=== PATIENT | male | born 1995 | race Caucasian/White ===

== ENCOUNTER 2016-06-14 09:42 | Emergency (ER) | payer MEDICAID ==
[2016-06-14 09:58] VITALS: BP 140/99
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
== END 2016-06-14 13:23 ==
LOC: JD.ED 09:42
DX: F20.9 Schizophrenia, unspecified (principal); F41.9 Anxiety disorder, unspecified; F32.9 Major depressive disorder, single episode, unspecified; F17.210 Nicotine dependence, cigarettes, uncomplicated; Z88.2 Allergy status to sulfonamides
CPT/HCPCS: 36415; 80053; 80306; 85025; 93005; 99284; G0480; 99285

== ENCOUNTER 2017-01-02 17:28 | Emergency (ER) | payer MEDICAID ==
[2017-01-02 17:40] VITALS: BP 179/103
[2017-01-02] MEDS ORDERED: Ondansetron 4 MG Tab.DIS PO ONE (19:24)
[2017-01-02] MEDS ORDERED: LORazepam 1 MG Tab PO ONE (19:24)
[2017-01-02] MEDS ORDERED: Dicyclomine 10 MG Cap PO ONE (19:24)
--- NOTE | 2017-01-02 19:26 | EDM.PDOCBH ---
ED HPI GENERAL MEDICAL PROBLEM - General Chief Complaint: Behavioral/Psych Stated Complaint: PSYCH/BEHAVIOR EVAL Time Seen by Provider: 01/02/17 19:05 Source of Information: Reports: Patient History Limitations: Reports: No Limitations - History of Present Illness INITIAL COMMENTS - FREE TEXT/NARRATIVE: 21-year-old male presents with his parents for evaluation treatment of suicidal thoughts and worsening hallucinations. Patient has a diagnosis of ADHD, schizophrenia, OCD and Tourette's. Does not recall what medications he was on previously. Possibly Abilify. He states he is currently only taking trazodone as needed for sleep. He said reports that he quit taking all his medications about 3 or 4 weeks ago. He states over the last few days he has noticed increasing auditory and visual hallucinations in the form of hearing his friends. He is also having suicidal thoughts. No current suicidal plan. No homicidal thoughts or any homicidal plan. Patient admits using marijuana and Xanax recreationally. He also states that he is using Coricidin the other day and attempt to get high and also possibly to end his life. He has previously had suicidal attempts. He has previously been inpatient psych in [facility] and at the [facility]. Patient was previously seen Dr. Goyal of [facility]. He has now been seeing Dr. Harris through telepsych out of [place]. Patient came to the ER as he states that he is feeling more depressed and suicidal. He states that he no longer feels safe at home in his apartment. He attributes this both to paranoid thoughts as well as not feeling safe due to his suicidal thoughts. He also reports he has not been sleeping well. Patient reports some medical concerns in the form of abdominal discomfort. Reports over the last 4-5 days it has minimal abdominal discomfort. Reports associated nausea and diarrhea. States she's had about 3 or 4 episodes of diarrhea per day. He states that anything he eats goes right through him. He has not had any fevers or vomiting. - Related Data Allergies Allergy/AdvReac Type Severity Reaction Status Date / Time Sulfa (Sulfonamide Allergy Respiratory Verified 01/02/17 17:33 Antibiotics) Distress Home Meds: Home Meds . [Unable to Verify Home Med List] 01/02/17 [History] Past Medical History Cardiovascular History: Reports: Hypertension Psychiatric History: Reports: ADD, ADHD, Anxiety, Depression, OCD, Panic Attack , Schizophrenia Other Psychiatric History: paranoia Social & Family History - Tobacco Use Smoking Status *Q: Current Every Day Smoker Years of Tobacco use: 1 Packs/Tins Daily: 0.2 - Caffeine Use Caffeine Use: Reports: Coffee, Energy Drinks, Soda - Recreational Drug Use Recreational Drug Use: Yes Drug Use in Last 12 Months: Yes Recreational Drug Type: Reports: Marijuana/Hashish, Xanax Recreational Drug Use Frequency: Daily Recreational Drug Last Use: today ED ROS GENERAL - Review of Systems Review Of Systems: See Below Constitutional: Reports: Decreased Appetite. Denies: Fever Respiratory: Denies: Cough GI/Abdominal: Reports: Abdominal Pain (cramping), Diarrhea (3-4 times per day), Nausea. Denies: Vomiting Neurological: Reports: Headache Psychiatric: Reports: Anxiety, Hallucinations, Suicidal Ideation. Denies: Homicidal Ideation ED EXAM, BEHAVIORAL HEALTH - Physical Exam Exam: See Below Exam Limited By: No Limitations General Appearance: Alert, WD/WN, No Apparent Distress, Obese Eye Exam: Bilateral Eye: Normal Inspection Ears: Normal External Exam Nose: Normal Inspection Throat/Mouth: Normal Inspection, Normal Lips, Normal Voice, No Airway Compromise Respiratory/Chest: No Respiratory Distress, Lungs Clear, Normal Breath Sounds Cardiovascular: Normal Peripheral Pulses, Regular Rate, Rhythm, No Murmur GI/Abdominal: Normal Bowel Sounds, Soft, Non-Tender Neurological: Alert, Normal Mood/Affect, Normal Cognition Psychiatric: Alert, Depressed Mood, Flat Affect, Suicidal Thoughts, Auditory Hallucinations, Visual Hallucinations, Paranoid Thoughts. No: Non-Communicative , Homicidal Thoughts, Suicidal Plan Skin Exam: Warm, Dry, Normal color COURSE, BEHAVIORAL HEALTH COMP - Course Vital Signs: Last Vital Signs Temp 36.5 C 01/02/17 17:34 Pulse 88 01/02/17 17:34 Resp 18 01/02/17 17:34 BP 179/103 H 01/02/17 17:34 Pulse Ox 97 01/02/17 17:34 Orders, Labs, Meds: Active Orders 24 hr Category Date Time Status Consult to [employer] Attendant [CONS] Routine Cons 01/03/17 00:16 Active Abdomen 1V Flat [CR] Stat Exams 01/02/17 19:23 Taken Laboratory Tests 01/02/17 01/02/17 01/02/17 Range/Units 19:45 19:45 19:45 WBC 15.14 H (4.23-9.07) K/mm3 RBC 5.43 (4.63-6.08) M/mm3 Hgb 16.5 (13.7-17.5) gm/L Hct 47.5 (40.1-51.0) % MCV 87.5 (79.0-92.2) fl MCH 30.4 (25.7-32.2) pg MCHC 34.7 (32.2-35.5) g/dl RDW Std Deviation 41.6 (35.1-43.9) fL Plt Count 267 (163-337) K/mm3 MPV 9.9 (9.4-12.3) fl Neutrophils % (Manual) 73 H (40-60) % Band Neutrophils % 0 (0-10) % Lymphocytes % (Manual) 19 L (20-40) % Atypical Lymphs % 0 % Monocytes % (Manual) 8 (2-10) % Eosinophils % (Manual) 0 L (0.8-7.0) % Basophils % (Manual) 0 L (0.2-1.2) Platelet Estimate Adequate RBC Morph Comment Normal Sodium 143 (136-145) mEq/L Potassium 3.6 (3.5-5.1) mEq/L Chloride 106 (98-107) mEq/L Carbon Dioxide 23 (21-32) mEq/L Anion Gap 17.6 H (5-15) BUN 12 (7-18) mg/dL Creatinine 1.0 (0.7-1.3) mg/dL Est Cr Clr Drug Dosing 124.45 mL/min Estimated GFR (MDRD) > 60 (>60) mL/min BUN/Creatinine Ratio 12.0 L (14-18) Glucose 105 (74-106) mg/dL Calcium 9.4 (8.5-10.1) mg/dL Total Bilirubin 0.7 (0.2-1.0) mg/dL AST 24 (15-37) U/L ALT 46 (16-63) U/L Alkaline Phosphatase 99 (46-116) U/L C-Reactive Protein 1.0 (<1.0) mg/dL Total Protein 8.2 (6.4-8.2) g/dl Albumin 4.2 (3.4-5.0) g/dl Globulin 4.0 gm/dL Albumin/Globulin Ratio 1.1 (1-2) TSH 3rd Generation 2.329 (0.358-3.74) uIU/mL Urine Color (Yellow) Urine Appearance (Clear) Urine pH (5.0-8.0) Ur Specific [place] (1.005-1.030) Urine Protein (Negative) Urine Glucose (UA) (Negative) Urine Ketones (Negative) Urine Occult Blood (Negative) Urine Nitrite (Negative) Urine Bilirubin (Negative) Urine Urobilinogen (0.2-1.0) Ur Leukocyte Esterase (Negative) Urine RBC (0-5) /hpf Urine WBC (0-5) /hpf Ur Epithelial Cells (0-5) /hpf Urine Bacteria (FEW) /hpf Urine Mucus (FEW) /hpf Salicylates 4.6 (2.8-20) mg/dL Urine Opiates Screen (NEGATIVE) Ur Buprenorphine Scrn (NEGATIVE) Ur Oxycodone Screen (NEGATIVE) Urine Methadone Screen (NEGATIVE) Ur Propoxyphene Screen (NEGATIVE) Acetaminophen 0 L (10-30) ug/mL Ur Barbiturates Screen (NEGATIVE) Ur Tricyclics Screen (NEGATIVE) Ur Phencyclidine Scrn (NEGATIVE) Ur Amphetamine Screen (NEGATIVE) U Methamphetamines Scrn (NEGATIVE) U Benzodiazepines Scrn (NEGATIVE) U Cocaine Metab Screen (NEGATIVE) U Marijuana (THC) Screen (NEGATIVE) Ethyl Alcohol 0.00 (0.00) gm% 01/02/17 01/02/17 Range/Units 20:44 20:44 WBC (4.23-9.07) K/mm3 RBC (4.63-6.08) M/mm3 Hgb (13.7-17.5) gm/L Hct (40.1-51.0) % MCV (79.0-92.2) fl MCH (25.7-32.2) pg MCHC (32.2-35.5) g/dl RDW Std Deviation (35.1-43.9) fL Plt Count (163-337) K/mm3 MPV (9.4-12.3) fl Neutrophils % (Manual) (40-60) % Band Neutrophils % (0-10) % Lymphocytes % (Manual) (20-40) % Atypical Lymphs % % Monocytes % (Manual) (2-10) % Eosinophils % (Manual) (0.8-7.0) % Basophils % (Manual) (0.2-1.2) Platelet Estimate RBC Morph Comment Sodium (136-145) mEq/L Potassium (3.5-5.1) mEq/L Chloride (98-107) mEq/L Carbon Dioxide (21-32) mEq/L Anion Gap (5-15) BUN (7-18) mg/dL Creatinine (0.7-1.3) mg/dL Est Cr Clr Drug Dosing mL/min Estimated GFR (MDRD) (>60) mL/min BUN/Creatinine Ratio (14-18) Glucose (74-106) mg/dL Calcium (8.5-10.1) mg/dL Total Bilirubin (0.2-1.0) mg/dL AST (15-37) U/L ALT (16-63) U/L Alkaline Phosphatase (46-116) U/L C-Reactive Protein (<1.0) mg/dL Total Protein (6.4-8.2) g/dl Albumin (3.4-5.0) g/dl Globulin gm/dL Albumin/Globulin Ratio (1-2) TSH 3rd Generation (0.358-3.74) uIU/mL Urine Color Yellow (Yellow) Urine Appearance Clear (Clear) Urine pH 5.5 (5.0-8.0) Ur Specific [place] > or = 1.030 (1.005-1.030) Urine Protein 1+ H (Negative) Urine Glucose (UA) Negative (Negative) Urine Ketones 3+ H (Negative) Urine Occult Blood Negative (Negative) Urine Nitrite Negative (Negative) Urine Bilirubin 2+ H (Negative) Urine Urobilinogen 1.0 (0.2-1.0) Ur Leukocyte Esterase Negative (Negative) Urine RBC 0-5 (0-5) /hpf Urine WBC 0-5 (0-5) /hpf Ur Epithelial Cells 0-5 (0-5) /hpf Urine Bacteria Few (FEW) /hpf Urine Mucus Moderate H (FEW) /hpf Salicylates (2.8-20) mg/dL Urine Opiates Screen Negative (NEGATIVE) Ur Buprenorphine Scrn Negative (NEGATIVE) Ur Oxycodone Screen Negative (NEGATIVE) Urine Methadone Screen Negative (NEGATIVE) Ur Propoxyphene Screen Negative (NEGATIVE) Acetaminophen (10-30) ug/mL Ur Barbiturates Screen Negative (NEGATIVE) Ur Tricyclics Screen Negative (NEGATIVE) Ur Phencyclidine Scrn Negative (NEGATIVE) Ur Amphetamine Screen Negative (NEGATIVE) U Methamphetamines Scrn Negative (NEGATIVE) U Benzodiazepines Scrn Presumptive positive H (NEGATIVE) U Cocaine Metab Screen Negative (NEGATIVE) U Marijuana (THC) Screen Presumptive positive H (NEGATIVE) Ethyl Alcohol (0.00) gm% Medications Discontinued Medications Generic Name Dose Route Start Last Admin Trade Name Lucille PRN Reason Stop Dose Admin Dicyclomine HCl 20 mg 01/02/17 19:24 01/02/17 19:37 Bentyl PO 01/02/17 19:25 20 mg ONETIME ONE Administration Lorazepam 1 mg 01/02/17 19:24 01/02/17 19:37 Ativan PO 01/02/17 19:25 1 mg ONETIME ONE Administration Lorazepam 1 mg 01/03/17 00:15 01/03/17 00:42 Ativan PO 01/03/17 00:16 1 mg ONETIME ONE Administration Ondansetron HCl 4 mg 01/02/17 19:24 01/02/17 19:37 Zofran Odt PO 01/02/17 19:25 4 mg ONETIME ONE Administration Re-Assessment/Re-Exam: 01-03-17 01:26 [facility] and [facility] in [place] are all full. Given that the patient has been to the [facility] in the past, I feel this is the most appropriate step. [facility] human services came to the ER and evaluated the patient. They contacted the [facility] and I discussed the case with Dr. Loo at the [facility]. The [facility] take him in the morning. Plan will be to have him either stay in the ER or go to the [facility] until he can be transported safely in the morning. committal paperwork has been filed. Medical Clearance: 01/03/17 01:24 Patient is medically cleared to go to the [facility] for further management and care KUB of the abdomen shows a normal bowel gas pattern. I feel his GI symptoms are likely from a viral gastritis enteritis. He is not pain diarrhea since entering the ER. He has been able to eat and has not had any vomiting with this. Discharge vs Psych Eval/Treatment:: 01/03/17 01:[address] Loo, psychiatrist contact center assistant at the [facility]. Agrees to the admission. Will take him in the morning. He may go to [facility] tonight or spend the night in the ER. Departure - Departure Time of Disposition: 09:00 Disposition: DC/Tfer to Psych Hosp/Unit 65 Condition: Fair Clinical Impression: Hallucinations, Suicidal ideation, Anxiety Schizophrenia Qualifiers: Schizophrenia type: unspecified Qualified Code(s): F20.9 - Schizophrenia, unspecified - Discharge Information Referrals: Pooja Joseph PA-C [Primary Care Provider] - Forms: ED Department Discharge Additional Instructions: Current plan is to transport the patient to the [facility] in the morning. He has been screened by [facility]. Committal paperwork is in place. I discussed the case Dr. Proctor, psychiatrist contact center assistant at the [facility] and he has accepted the patient. He may stay the night in the ER as long as he is calm and acts appropriately. He was informed that if he attempts to leave or causes any problems the police will be called and he will then spend the night in the [facility]. - My Orders Last 24 Hours: My Active Orders 01/02/17 19:23 Abdomen 1V Flat [CR] Stat 01/03/17 00:16 Consult to [employer] Attendant [CONS] Routine - Assessment/Plan Last 24 Hours: My Active Orders 01/02/17 19:23 Abdomen 1V Flat [CR] Stat 01/03/17 00:16 Consult to [employer] Attendant [CONS] Routine
[2017-01-02 20:29] LABS: ACETAMINOPHEN 0 ug/mL (10-30)
[2017-01-03] MEDS ORDERED: LORazepam 1 MG Tab PO ONE (00:15)
[2017-01-03] MEDS ORDERED: Acetaminophen 325 MG Tab PO ONE (01:21)
--- NOTE | 2017-01-04 11:01 | CR ---
Abdomen: Supine view of the abdomen was obtained. Comparison: No prior abdominal x-ray, prior abdominal and pelvic CT exam of 02/28/10 is available. Bowel gas pattern appears normal. No abnormal calcifications or discrete soft tissue abnormality is identified. Bony structures are grossly intact. Impression: 1. No abnormality is seen on supine abdominal x-ray. Diagnostic code #1
== END 2017-01-03 08:15 ==
LOC: JD.ED 17:28
DX: R45.851 Suicidal ideations (principal); F20.9 Schizophrenia, unspecified; F41.9 Anxiety disorder, unspecified; I10 Essential (primary) hypertension; F17.210 Nicotine dependence, cigarettes, uncomplicated; Z88.2 Allergy status to sulfonamides
CPT/HCPCS: 36415; 74000; 80053; 80306; 81001; 84443; 85025; 86140; 96372; 99285; A9270; G0480; 99284

== ENCOUNTER 2017-06-19 11:37 | Emergency (ER) | payer OTHER, MEDICAID ==
[2017-06-19 11:48] VITALS: BP 151/88
[2017-06-19] MEDS ORDERED: Lidocaine 1% 10 ML MDV INJECT ONE (11:56)
--- NOTE | 2017-06-19 11:56 | EDM.PDOC ---
ED HPI GENERAL MEDICAL PROBLEM - General Chief Complaint: Upper Extremity Injury/Pain Stated Complaint: RT RING FINGER LAC Time Seen by Provider: 06/19/17 11:55 Source of Information: Reports: Patient History Limitations: Reports: No Limitations - History of Present Illness INITIAL COMMENTS - FREE TEXT/NARRATIVE: Chinedu is a 22yo male presents ambulatory to ED this morning after knife slipped while opening a package at work lacerating his left ring finger dorsal surface. Bleeding is controlled now. He can move/bend the finger and has sensation to tip of finger. Last tetanus was 6 or 7 years ago. He declines tetanus immunization today. Onset: Today Duration: Hour(s): Location: Reports: Upper Extremity, Left (left ring finger over PIP joint surface) Improves with: Reports: None Worsens with: Reports: None Context: Reports: Other (work related, knife slipped while opening a package) Right Hand Pain Score (Numeric/FACES): 8 - Related Data Allergies Allergy/AdvReac Type Severity Reaction Status Date / Time Sulfa (Sulfonamide Allergy Respiratory Verified 06/19/17 11:45 Antibiotics) Distress Home Meds: Home Meds . [Unable to Verify Home Med List] 01/02/17 [History] Past Medical History Cardiovascular History: Reports: Hypertension Psychiatric History: Reports: ADD, ADHD, Anxiety, Depression, OCD, Panic Attack , Schizophrenia Other Psychiatric History: paranoia Social & Family History - Tobacco Use Smoking Status *Q: Never Smoker Years of Tobacco use: 1 Packs/Tins Daily: 0.2 - Caffeine Use Caffeine Use: Reports: Coffee, Energy Drinks, Soda - Recreational Drug Use Recreational Drug Use: No Drug Use in Last 12 Months: Yes Recreational Drug Type: Reports: Marijuana/Hashish, Xanax Recreational Drug Use Frequency: Daily Recreational Drug Last Use: today Review of Systems - Review of Systems Review Of Systems: See Below Constitutional: Reports: No Symptoms Eyes: Reports: No Symptoms Respiratory: Reports: No Symptoms Cardiovascular: Reports: No Symptoms Musculoskeletal: Reports: Other (see HPI) ED EXAM, GENERAL - Physical Exam Exam: See Below Exam Limited By: No Limitations General Appearance: Alert, WD/WN, No Apparent Distress Eye Exam: Bilateral Eye: EOMI, PERRL Nose: Normal Inspection Throat/Mouth: Normal Voice Head: Atraumatic, Normocephalic Neck: Normal Inspection Respiratory/Chest: No Respiratory Distress Cardiovascular: Normal Peripheral Pulses Peripheral Pulses: 2+: Radial (L), Radial (R) Extremities: Other (left hand is with linear laceration, approximately 1cm across ring finger, dorsal aspect over PIP surface. ROM to ringer/joint is WNL, CMS is + distal tip of finger) Neurological: Alert, Oriented, Normal Cognition Psychiatric: Normal Affect, Normal Mood Skin Exam: Warm ED TRAUMA EXTREMITY PROCEDURES - Laceration/Wound Repair Right Proximal Dorsal Finger Lac/Wound Length In cm: 1.5 Appearance: Superficial, Subcutaneous Distal NVT: Neuro & Vascular Intact Anesthetic Type: Digital Local Anesthesia - Lidocaine (Xylocaine): 1% Plain Local Anesthetic Volume: 5cc Skin Prep: Chlorhexidine (Hibiciens) Exploration/Debridement/Repair: Wound Explored, In a Bloodless Field, Explored to Base, No Foreign Material Found Suture Size: 4-0 Suture Type: Nylon Sterile Dressing Applied: Nurse Tetanus Status Addressed: Yes Complications: No Complication Description: None Course - Vital Signs Last Recorded V/S: Last Vital Signs Temp 97.2 F 06/19/17 11:45 Pulse 80 06/19/17 11:45 Resp 17 06/19/17 11:45 BP 151/88 H 06/19/17 11:45 Pulse Ox 96 06/19/17 11:45 - Orders/Labs/Meds Meds: Medications Discontinued Medications Generic Name Dose Route Start Last Admin Trade Name Lucille PRN Reason Stop Dose Admin Lidocaine HCl 10 ml 06/19/17 11:56 06/19/17 12:21 Xylocaine 1% INJECT 06/19/17 11:57 10 ml ONETIME ONE Administration Departure - Departure Time of Disposition: 13:05 Disposition: Home, Self-Care 01 Condition: Good Clinical Impression: Laceration of finger Qualifiers: Encounter type: initial encounter Finger: ring finger Damage to nail status: without damage Foreign body presence: without foreign body Laterality: right Qualified Code(s): S61.214A - Laceration without foreign body of right ring finger without damage to nail, initial encounter - Discharge Information Instructions: Laceration Care, Adult, Stitches, [place], or Adhesive Wound Closure, [id number] Referrals: Pooja Joseph PA-C [Primary Care Provider] - Forms: ED Department Discharge Additional Instructions: Keep wound clean, dry and covered at all times except while showering. Do not soak it in tub or swim. Watch for signs of infection, increased pain, redness, drainage, swelling- return to ER or clinic if signs develop Use antibiotic ointment on wound once daily after bathing Suture removal in 8-10 days No work today then can return tomorrow, keep wound clean and with glove on while working with food Return to ED if needed for ?'s or concerns.
== END 2017-06-19 13:16 | disposition home or self-care (01) ==
LOC: JD.ED 11:37
DX: S61.215A Laceration without foreign body of left ring finger without damage to nail, initial encounter (principal); I10 Essential (primary) hypertension; F41.9 Anxiety disorder, unspecified; F32.9 Major depressive disorder, single episode, unspecified; F90.9 Attention-deficit hyperactivity disorder, unspecified type; Z88.2 Allergy status to sulfonamides; W26.0XXA Contact with knife, initial encounter
CPT/HCPCS: 12001; 99282-25; 99283-25

== ENCOUNTER 2019-01-21 23:50 | Emergency (ER) | payer MEDICARE, MEDICAID ==
[2019-01-22] VITALS: BP 159/92; PULSE 92
[2019-01-22] MEDS ORDERED: FLU Vacc QS2019-20(6MOS+)/PF 60 MCG/0.5 ML SYRINGE IM ONE (00:30)
[2019-01-22] MEDS ORDERED: Diphtheria,Pertussis(Acell),Tetanus Vaccine 0.5 ML Syringe IM ONE (00:43)
--- NOTE | 2019-01-22 00:55 | EDM.PDOC ---
ED HPI GENERAL MEDICAL PROBLEM - General Chief Complaint: Laceration Stated Complaint: finger laceration Time Seen by Provider: 01/22/19 00:12 Source of Information: Reports: Patient, Family (Mother) History Limitations: Reports: No Limitations - History of Present Illness INITIAL COMMENTS - FREE TEXT/NARRATIVE: Mr. Santana is a very pleasant 23-year-old man with a past medical history significant for numerous psychiatric issues, who states that he lacerated his left thumb on some "loose glass" while cooking, around 23:00 tonight. He presents with a laceration to the distal left thumb pad. He is otherwise uninjured. The patient does not recall when his last tetanus vaccination was, but he is willing to receive one vaccination tonight. He has not received an influenza vaccine this season, but is willing to receive one tonight. The patient's PCP is [facility] Pressley. His Psychiatrist is Dr. Rebekah Goyal. Left Finger-Thumb Pain Score (Numeric/FACES): 4 - Related Data Allergies Allergy/AdvReac Type Severity Reaction Status Date / Time Sulfa (Sulfonamide Allergy Respiratory Verified 01/22/19 00:00 Antibiotics) Distress Home Meds: Home Meds Divalproex Sodium [Depakote ER] 500 mg PO BEDTIME 08/17/18 [History] Lisinopril [Prinivil] 10 mg PO DAILY 08/17/18 [History] traZODone HCl [Trazodone HCl] 50 mg PO BEDTIME 08/17/18 [History] Past Medical History Cardiovascular History: Reports: Hypertension Psychiatric History: Reports: ADHD, Anxiety, Bipolar, Depression, OCD, Panic Attack, Schizophrenia Endocrine/Metabolic History: Reports: Obesity/BMI 30+ Social & Family History - Tobacco Use Smoking Status *Q: Current Every Day Smoker Years of Tobacco use: 5 Packs/Tins Daily: 0.5 - Caffeine Use Caffeine Use: Reports: Coffee, Soda - Alcohol Use Alcohol Use History: Yes Alcohol Use Frequency: Socially - Recreational Drug Use Recreational Drug Use: Yes Drug Use in Last 12 Months: Yes Recreational Drug Type: Reports: Cocaine (last snorted 2015), LSD (Acid) (last took Feb 2018), Marijuana/Hashish (smokes daily), Psilocybin (Mushrooms) (last took May 2018), Xanax (last abused 2016), Other (see below) (Last abused opioids June 2018) - Living Situation & Occupation Living situation: Reports: Single, Other (with a friend) Occupation: Disabled ED ROS GENERAL - Review of Systems Review Of Systems: Comprehensive ROS is negative, except as noted in HPI. ED EXAM, SKIN/RASH Exam: See Below Exam Limited By: No Limitations General Appearance: Alert, WD/WN, No Apparent Distress Extremities: Other (There is a 1.75 cm linear laceration across the distal left thumb pad. Neurovascular status of the left thumb is intact.) Course - Vital Signs Last Recorded V/S: Last Vital Signs Temp 36.4 C 01/21/19 23:57 Pulse 92 01/21/19 23:57 Resp 16 01/21/19 23:57 BP 159/92 H 01/21/19 23:57 Pulse Ox 95 01/21/19 23:57 - Orders/Labs/Meds Orders: Active Orders 24 hr Category Date Time Status Influenza Vaccine Charge [RC] .DISCHARGE Care 01/22/19 00:02 Active Vaccines to be Administered [RC] PER UNIT ROUTINE Care 01/22/19 00:44 Ordered Meds: Medications Discontinued Medications Generic Name Dose Route Start Last Admin Trade Name Freq PRN Reason Stop Dose Admin Diphtheria/Tetanus/Acell Pertussis 0.5 ml 01/22/19 00:43 01/22/19 01:10 Adacel IM 01/22/19 00:44 0.5 ml .ONCE ONE Administration Influenza Virus Vaccine 1 each 01/22/19 00:02 Pharmacy To Dose - Influenza Vaccine IM 01/22/19 00:03 ONETIME ONE Influenza Virus Vaccine 60 mcg 01/22/19 00:30 01/22/19 01:12 Fluzone Quad [id number] Syringe IM 01/22/19 00:31 60 mcg .ONCE ONE Administration - Re-Assessments/Exams Free Text/Narrative Re-Assessment/Exam: 01/22/19 01:03 The laceration was not initially bleeding, however, when I attempted to approximate the edges to see if the patient would be a good candidate for Dermabond, I noticed a small amount of subcutaneous fat protruding from the wound. I trimmed the fat, and this caused the wound to bleed. I am currently having the patient apply direct pressure to the wound. 01/22/19 01:09 The wound successfully stop bleeding, and Dermabond was applied without difficult. The patient can safely be discharged home. The patient will receive both a tetanus vaccination and an influenza vaccine prior to discharge. Departure - Departure Time of Disposition: 01:10 Disposition: Home, Self-Care 01 Condition: Good Clinical Impression: Laceration of left thumb - Discharge Information *PRESCRIPTION DRUG MONITORING PROGRAM REVIEWED*: Not Applicable *COPY OF PRESCRIPTION DRUG MONITORING REPORT IN PATIENT AYAH: Not Applicable Referrals: Pooja Joseph PA-C [Primary Care Provider] - Free,Rebekah Luna MD [Ordering Only Provider] - Forms: ED Department Discharge Additional Instructions: You were seen in the emergency room after cutting your left thumb. Your wound was closed with Dermabond. Do not apply a Band-Aid to the wound tonight, however, we recommend that you cover the wound with a Band-Aid starting in the morning, 01/22/2019. You should not soak the wound, such as with doing dishes, in a bath, or swimming , however, the wound can get wet for a few minutes when you bathe. Do not pick at the glue. Allow it flake off on its own. If any other problems, please do not hesitate to return to the ER. *You received a tetanus vaccination and an influenza vaccination during your ER visit.* - My Orders Last 24 Hours: My Active Orders 01/22/19 00:02 Influenza Vaccine Charge [RC] .DISCHARGE 01/22/19 00:44 Vaccines to be Administered [RC] PER UNIT ROUTINE - Assessment/Plan Last 24 Hours: My Active Orders 01/22/19 00:02 Influenza Vaccine Charge [RC] .DISCHARGE 01/22/19 00:44 Vaccines to be Administered [RC] PER UNIT ROUTINE
== END 2019-01-22 01:20 | disposition home or self-care (01) ==
LOC: JD.ED 23:50
DX: S61.012A Laceration without foreign body of left thumb without damage to nail, initial encounter (principal); F32.9 Major depressive disorder, single episode, unspecified; I10 Essential (primary) hypertension; E66.9 Obesity, unspecified; F17.210 Nicotine dependence, cigarettes, uncomplicated; Z79.899 Other long term (current) drug therapy; Z23 Encounter for immunization; W25.XXXA Contact with sharp glass, initial encounter; Y93.G3 Activity, cooking and baking
CPT/HCPCS: 12001; 90686; 90715; 99282; G0008; 90471

== ENCOUNTER 2019-08-29 21:07 | Emergency (ER) | payer MEDICARE, MEDICAID ==
[2019-08-29 21:25] VITALS: BP 161/88; PULSE 97
[2019-08-29] MEDS ORDERED: Acetaminophen/Codeine 300-30 MG Tab PO ONE (21:47)
[2019-08-29] MEDS ORDERED: Ketorolac 60 MG/2 ML SDV IM ONE (21:47)
[2019-08-29] MEDS ORDERED: Penicillin V Potassium 500 MG Tab PO ONE (21:47)
--- NOTE | 2019-08-29 21:56 | EDM.PDOC ---
ED HPI GENERAL MEDICAL PROBLEM - General Chief Complaint: General Stated Complaint: TOOTH PAIN Time Seen by Provider: 08/29/19 21:20 Source of Information: Reports: Patient History Limitations: Reports: No Limitations - History of Present Illness INITIAL COMMENTS - FREE TEXT/NARRATIVE: Patient is a 24-year-old male who presents to the emergency department with complaints of right lower tooth pain. This has been going on gradually for the last 2 weeks, however is worsened intensity in the last 2 days. He states he has experienced pain in this tooth previously and been treating with antibiotics. He did see a dentist for it and was advised that it needs to be pulled, however shortly thereafter he had a stay at the [facility] so he has been unable to have it fixed. He denies any fever, chills, nausea, or vomiting. 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 Right Tooth/Teeth Pain Score (Numeric/FACES): 9 - Related Data Allergies Allergy/AdvReac Type Severity Reaction Status Date / Time Sulfa (Sulfonamide Allergy Respiratory Verified 08/29/19 21:23 Antibiotics) Distress Home Meds: Home Meds Divalproex Sodium [Depakote ER] 500 mg PO BEDTIME 08/17/18 [History] lisinopriL [Prinivil] 10 mg PO DAILY 08/17/18 [History] traZODone HCl [Trazodone HCl] 50 mg PO BEDTIME 08/17/18 [History] Acetaminophen with Codeine [Tylenol with Codeine #3 Tablet] 1 each PO Q4H PRN #10 tablet 08/29/19 [Rx] Penicillin V Potassium [Veetids] 500 mg PO Q6H #39 tab 08/29/19 [Rx] Past Medical History Cardiovascular History: Reports: Hypertension Psychiatric History: Reports: ADHD, Anxiety, Bipolar, Depression, OCD, Panic Attack, Schizophrenia Other Psychiatric History: paranoia Endocrine/Metabolic History: Reports: Obesity/BMI 30+ Social & Family History - Tobacco Use Smoking Status *Q: Current Every Day Smoker Years of Tobacco use: 5 Packs/Tins Daily: 1 - Caffeine Use Caffeine Use: Reports: Coffee, Energy Drinks, Soda, Tea - Recreational Drug Use Recreational Drug Use: No - Living Situation & Occupation Living situation: Reports: Single, Other (with a friend) Occupation: Disabled ED ROS GENERAL - Review of Systems Review Of Systems: Comprehensive ROS is negative, except as noted in HPI. ED EXAM, GENERAL - Physical Exam Exam: See Below Exam Limited By: No Limitations General Appearance: Alert, WD/WN, No Apparent Distress Throat/Mouth: Other (Slight yellowish discoloration to tooth 31. Old filling appears to be partially broken. No redness or swelling to the gums or jaw.) Respiratory/Chest: No Respiratory Distress, Lungs Clear, Normal Breath Sounds, No Accessory Muscle Use, Chest Non-Tender Cardiovascular: Normal Peripheral Pulses, Regular Rate, Rhythm, No Edema, No Gallop, No JVD, No Murmur, No Rub Neurological: Alert, Oriented, CN II-XII Intact, Normal Cognition, Normal Gait, Normal Reflexes, No Motor/Sensory Deficits Psychiatric: Normal Affect, Normal Mood Skin Exam: Warm, Dry, Intact, Normal Color, No Rash Course - Vital Signs Last Recorded V/S: Last Vital Signs Temp 97.0 F 08/29/19 21:20 Pulse 97 08/29/19 21:20 Resp 20 08/29/19 21:20 BP 161/88 H 08/29/19 21:20 Pulse Ox 97 08/29/19 21:20 - Orders/Labs/Meds Meds: Medications Discontinued Medications Generic Name Dose Route Start Last Admin Trade Name Kelbyq PRN Reason Stop Dose Admin Acetaminophen/Codeine Phosphate 1 tab 08/29/19 21:47 Tylenol With Codeine No.3 300mg/30mg PO 08/29/19 21:48 ONETIME ONE Ketorolac Tromethamine 60 mg 08/29/19 21:47 Toradol IM 08/29/19 21:48 ONETIME ONE Penicillin V Potassium 500 mg 08/29/19 21:47 Veetids PO 08/29/19 21:48 ONETIME ONE - Re-Assessments/Exams Free Text/Narrative Re-Assessment/Exam: 08/29/19 21:51 On exam, there is some slight yellowish discoloration to tooth #31 and it appears that the filling may be partially broken. We will treat with Veetids. A prescription for Tylenol 3 will be sent as well. While in the ER, he will get injection of Toradol as well as Tylenol 3. First dose of Veetids will be given as well as pharmacies are closed. Discussed the importance of follow-up with a dentist and he verbalized understanding. Discharge instructions as documented. Departure - Departure Time of Disposition: 21:52 Disposition: Home, Self-Care 01 Condition: Good Clinical Impression: Tooth pain - Discharge Information *PRESCRIPTION DRUG MONITORING PROGRAM REVIEWED*: Yes *COPY OF PRESCRIPTION DRUG MONITORING REPORT IN PATIENT AYAH: No Prescriptions: Acetaminophen with Codeine [Tylenol with Codeine #3 Tablet] 1 each PO Q4H PRN #10 tablet PRN Reason: Pain Penicillin V Potassium [Veetids] 500 mg PO Q6H #39 tab Referrals: PCP,None [Primary Care Provider] - Forms: ED Department Discharge Additional Instructions: You were seen in the emergency department tonight for right lower tooth pain. While in the ER, you received a dose of Toradol, Tylenol 3, and penicillin V. A prescription for Tylenol 3 and penicillin V has been sent to [facility] in [facility]. Recommend that you take [id number] Tylenol or ibuprofen as needed f or the pain. For pain not relieved by those measures, you may take 1 of the Tylenol 3's every 4 hours. Take the antibiotics as prescribed for the entire prescription. Do not stop taking them even if the dental pain is feeling better. Recommend that you call first thing tomorrow morning to set up an appointment with a dentist to have the tooth removed. Return to the ER as needed. Sepsis Event Note (ED) - Evaluation Sepsis Screening Result: No Definite Risk - Focused Exam Vital Signs: Vital Signs Temp Pulse Resp BP Pulse Ox 08/29/19 21:20 97.0 F 97 20 161/88 H 97
== END 2019-08-29 22:12 | disposition home or self-care (01) ==
LOC: JD.ED 21:07
DX: K08.89 Other specified disorders of teeth and supporting structures (principal); I10 Essential (primary) hypertension; E66.9 Obesity, unspecified; F31.9 Bipolar disorder, unspecified; F41.0 Panic disorder [episodic paroxysmal anxiety]; F20.9 Schizophrenia, unspecified; F17.210 Nicotine dependence, cigarettes, uncomplicated; Z88.2 Allergy status to sulfonamides; Z79.899 Other long term (current) drug therapy; Z68.43 Body mass index [BMI] 50.0-59.9, adult
CPT/HCPCS: 96372; 99282; A9270; J1885

== ENCOUNTER 2020-01-05 02:10 | Emergency (ER) | payer MEDICARE, MEDICAID ==
[2020-01-05 02:25] VITALS: PULSE 125
--- NOTE | 2020-01-05 02:39 | EDM.PDOCBH ---
ED HPI GENERAL MEDICAL PROBLEM - General Chief Complaint: Behavioral/Psych Stated Complaint: [facility] Time Seen by Provider: 01/05/20 02:15 Source of Information: Reports: Patient History Limitations: Reports: No Limitations - History of Present Illness INITIAL COMMENTS - FREE TEXT/NARRATIVE: This is a 24-year-old male. The ambulance was called to [place] because he was claiming to be suicidal. When they bring him to the ER he denies suicidal ideation or homicidal ideation and he wants to stay alive and he wants everybody else to stay alive. He is having some paranoid ideation and the fact that he has been smoking marijuana that he thinks is laced by the gangs with a cartel with meth. He states he has been off his medications for several weeks now and he knows he needs to be on them but he has not started them back and he knows exactly where they are in his house. He does have a history of schizophrenia, depression, anxiety bipolar disorder, ADHD, panic disorder and OCD. He gets all of his medications which she has done several times in the past his schizophrenia seems to come out and he becomes somewhat anxious and paranoid and there have been times where he has been having some hallucinations and delusions. The patient denies any recent illnesses but may be a mild cough. He has suicidal ideation history back in 2014 and has threatened in 2016 to cut his throat though he never did so in 2016. He has been to [facility] in the past he is also been to the [facility] in June 2016 secondary to hallucinations and schizophrenia. He also goes to [facility] and sees Dr. Goyal but he has not been there in quite some time. - Related Data Allergies Allergy/AdvReac Type Severity Reaction Status Date / Time Sulfa (Sulfonamide Allergy Respiratory Verified 01/05/20 02:15 Antibiotics) Distress Home Meds: Home Meds Divalproex Sodium [Depakote ER] 500 mg PO BEDTIME 08/17/18 [History] lisinopriL [Prinivil] 10 mg PO DAILY 08/17/18 [History] traZODone HCl [Trazodone HCl] 50 mg PO BEDTIME 08/17/18 [History] Acetaminophen with Codeine [Tylenol with Codeine #3 Tablet] 1 each PO Q4H PRN #10 tablet 08/29/19 [Rx] Penicillin V Potassium [Veetids] 500 mg PO Q6H #39 tab 08/29/19 [Rx] Past Medical History Cardiovascular History: Reports: Hypertension Psychiatric History: Reports: ADHD, Anxiety, Bipolar, Depression, OCD, Panic Attack, Schizophrenia Other Psychiatric History: paranoia Endocrine/Metabolic History: Reports: Obesity/BMI 30+ Social & Family History - Tobacco Use Tobacco Use Status *Q: Current Every Day Tobacco User Years of Tobacco use: 6 Packs/Tins Daily: 1.5 - Caffeine Use Caffeine Use: Reports: None - Recreational Drug Use Recreational Drug Use: Yes Drug Use in Last 12 Months: Yes Recreational Drug Type: Reports: Marijuana/Hashish Recreational Drug Use Frequency: Daily - Living Situation & Occupation Living situation: Reports: Single, Other (with a friend) Occupation: Disabled ED ROS GENERAL - Review of Systems Review Of Systems: See Below Constitutional: Denies: Fever, Chills HEENT: Reports: No Symptoms Respiratory: Reports: Cough. Denies: Shortness of Breath, Wheezing Cardiovascular: Denies: Chest Pain Endocrine: Reports: No Symptoms GI/Abdominal: Denies: Abdominal Pain, Diarrhea, Nausea, Vomiting : Reports: No Symptoms Musculoskeletal: Reports: No Symptoms Skin: Reports: No Symptoms Neurological: Reports: No Symptoms Psychiatric: Reports: Agitation, Confusion, Mood Lability. Denies: Homicidal Ideation, Suicidal Ideation Hematologic/Lymphatic: Reports: No Symptoms ED EXAM, BEHAVIORAL HEALTH - Physical Exam Exam: See Below Exam Limited By: No Limitations General Appearance: Alert, WD/WN, Anxious Eye Exam: Bilateral Eye: Normal Inspection Ears: Normal External Exam, Normal Canal, Normal TMs Nose: Normal Inspection Throat/Mouth: Normal Inspection, Normal Lips, Normal Oropharynx, Normal Voice, No Airway Compromise Head: Normocephalic Neck: Supple Respiratory/Chest: No Respiratory Distress, Lungs Clear, Normal Breath Sounds Cardiovascular: Regular Rate, Rhythm, No Murmur, Tachycardia GI/Abdominal: Soft, Other (Any abdominal tenderness. He has a marked elevated BMI.) Back Exam: Normal Inspection, Full Range of Motion Extremities: Normal Inspection, Normal Range of Motion Neurological: Alert, Oriented x 3 Psychiatric: Alert, Restless, Agitated, Poor Eye Contact, Flight of Ideas, Tangential Thoughts Skin Exam: Warm, Dry COURSE, BEHAVIORAL HEALTH COMP - Course Vital Signs: Last Vital Signs Temp 98.2 F 01/05/20 02:20 Pulse 125 H 01/05/20 02:20 Resp 18 01/05/20 02:20 BP 000/0 L 01/05/20 03:12 Pulse Ox 96 01/05/20 02:20 Orders, Labs, Meds: Laboratory Tests 01/05/20 01/05/20 01/05/20 Range/Units 03:30 03:30 03:30 WBC 15.63 H (4.23-9.07) K/mm3 RBC 5.47 (4.63-6.08) M/mm3 Hgb 16.6 (13.7-17.5) gm/dl Hct 48.8 (40.1-51.0) % MCV 89.2 (79.0-92.2) fl MCH 30.3 (25.7-32.2) pg MCHC 34.0 (32.2-35.5) g/dl RDW Std Deviation 43.1 (35.1-43.9) fL Plt Count 280 (163-337) K/mm3 MPV 9.6 (9.4-12.3) fl Neut % (Auto) 69.8 H (34.0-67.9) % Lymph % (Auto) 18.0 L (21.8-53.1) % Clinton % (Auto) 11.0 (5.3-12.2) % Eos % (Auto) 0.6 L (0.8-7.0) Baso % (Auto) 0.3 (0.1-1.2) % Neut # (Auto) 10.90 H (1.78-5.38) K/mm3 Lymph # (Auto) 2.81 (1.32-3.57) K/mm3 Clinton # (Auto) 1.72 H (0.30-0.82) K/mm3 Eos # (Auto) 0.10 (0.04-0.54) K/mm3 Baso # (Auto) 0.05 (0.01-0.08) K/mm3 Manual Slide Review Abnormal smear Sodium 137 (136-145) mEq/L Potassium 3.6 (3.5-5.1) mEq/L Chloride 99 (98-107) mEq/L Carbon Dioxide 24 (21-32) mEq/L Anion Gap 17.6 H (5-15) BUN 13 (7-18) mg/dL Creatinine 1.0 (0.7-1.3) mg/dL Est Cr Clr Drug Dosing 117.61 mL/min Estimated GFR (MDRD) > 60 (>60) mL/min BUN/Creatinine Ratio 13.0 L (14-18) Glucose 109 H (74-106) mg/dL Calcium 9.1 (8.5-10.1) mg/dL Total Bilirubin 0.6 (0.2-1.0) mg/dL AST 17 (15-37) U/L ALT 42 (16-63) U/L Alkaline Phosphatase 70 (46-116) U/L Total Protein 8.0 (6.4-8.2) g/dl Albumin 3.9 (3.4-5.0) g/dl Globulin 4.1 gm/dL Albumin/Globulin Ratio 1.0 (1-2) Salicylates 3.2 (2.8-20) mg/dL Urine Opiates Screen (MKNVLA=886) Ur Buprenorphine Scrn (CUTOFF=10) Ur Oxycodone Screen (PNM0TW=543) Urine Methadone Screen (OXX1GH=300) Ur Propoxyphene Screen (YTGBAW=969) Acetaminophen 0 L (10-30) ug/mL Ur Barbiturates Screen (NYXPDZ=128) Ur Tricyclics Screen (CVICOP=459) Ur Phencyclidine Scrn (CUTOFF=25) Ur Amphetamine Screen (GBOFGX=657) U Methamphetamines Scrn (IVVVDV=577) U Benzodiazepines Scrn (NFYCLV=884) U Cocaine Metab Screen (ZKOVUJ=783) U Marijuana (THC) Screen (CUTOFF=50) SARS-CoV-2 RNA (GAURAV) (NEGATIVE) 01/05/20 01/05/20 Range/Units 03:40 03:40 WBC (4.23-9.07) K/mm3 RBC (4.63-6.08) M/mm3 Hgb (13.7-17.5) gm/dl Hct (40.1-51.0) % MCV (79.0-92.2) fl MCH (25.7-32.2) pg MCHC (32.2-35.5) g/dl RDW Std Deviation (35.1-43.9) fL Plt Count (163-337) K/mm3 MPV (9.4-12.3) fl Neut % (Auto) (34.0-67.9) % Lymph % (Auto) (21.8-53.1) % Clinton % (Auto) (5.3-12.2) % Eos % (Auto) (0.8-7.0) Baso % (Auto) (0.1-1.2) % Neut # (Auto) (1.78-5.38) K/mm3 Lymph # (Auto) (1.32-3.57) K/mm3 Clinton # (Auto) (0.30-0.82) K/mm3 Eos # (Auto) (0.04-0.54) K/mm3 Baso # (Auto) (0.01-0.08) K/mm3 Manual Slide Review Sodium (136-145) mEq/L Potassium (3.5-5.1) mEq/L Chloride (98-107) mEq/L Carbon Dioxide (21-32) mEq/L Anion Gap (5-15) BUN (7-18) mg/dL Creatinine (0.7-1.3) mg/dL Est Cr Clr Drug Dosing mL/min Estimated GFR (MDRD) (>60) mL/min BUN/Creatinine Ratio (14-18) Glucose (74-106) mg/dL Calcium (8.5-10.1) mg/dL Total Bilirubin (0.2-1.0) mg/dL AST (15-37) U/L ALT (16-63) U/L Alkaline Phosphatase (46-116) U/L Total Protein (6.4-8.2) g/dl Albumin (3.4-5.0) g/dl Globulin gm/dL Albumin/Globulin Ratio (1-2) Salicylates (2.8-20) mg/dL Urine Opiates Screen Negative (JBSUIF=307) Ur Buprenorphine Scrn Negative (CUTOFF=10) Ur Oxycodone Screen Negative (UDN2IA=038) Urine Methadone Screen Negative (TNF3MG=580) Ur Propoxyphene Screen Negative (ACOCDG=516) Acetaminophen (10-30) ug/mL Ur Barbiturates Screen Negative (HAWYMP=512) Ur Tricyclics Screen Negative (JPKYDN=972) Ur Phencyclidine Scrn Negative (CUTOFF=25) Ur Amphetamine Screen Negative (EQQKTZ=148) U Methamphetamines Scrn Presumptive positive H (IZJXBA=844) U Benzodiazepines Scrn Presumptive positive H (JKHPJQ=659) U Cocaine Metab Screen Negative (XAAPSI=823) U Marijuana (THC) Screen Presumptive positive H (CUTOFF=50) SARS-CoV-2 RNA (GAURAV) Negative (NEGATIVE) Medications Discontinued Medications Generic Name Dose Route Start Last Admin Trade Name Lucille PRN Reason Stop Dose Admin Lisinopril 10 mg 01/05/20 03:03 01/05/20 03:12 Prinivil PO 01/05/20 03:04 10 mg ONETIME ONE Administration Olanzapine 10 mg 01/05/20 03:01 01/05/20 03:08 Zyprexa IM 01/05/20 03:02 10 mg ONETIME ONE Administration Olanzapine 10 mg 01/05/20 05:10 01/05/20 05:11 Zyprexa IM 01/05/20 05:11 10 mg ONETIME ONE Administration Discharge vs Psych Eval/Treatment:: 01/05/20 03:01 Patient has gotten increasingly agitated and loud. He has been belligerent at times and he calms down. He is pacing in the room and agitated and the police were called to make certain he did not escape the ER and to calm him down. We will try giving him 10 mg Zyprexa IM in hopes that will come to calm him down some. He now states that he is hearing voices and they are telling him to be good. He is having flight of ideas and tangential thoughts from these flight of ideas. I am not certain what medications he has been on or is supposed to be on. At his last ER visit he was on trazodone Depakote and lisinopril. 01/05/20 03:49 The police arrived he settled down quite nicely. After they left he began to become slightly more agitated. He was using multiple curse words with flight of ideas. Talking to himself incessantly. Yelling at times. He does state that he is hearing voices but the voices tell him to be good. 01/05/20 05:[address] Stuart [facility] psych unit and he accepts the patient for further evaluation and treatment. They want to make certain that his Covid test is negative and it is been confirmed to be negative. Will fax the paperwork for the 24-hour shelter as well as the Covid test 01/05/20 06:22 Because the patient was being somewhat agitated and aggressive I gave him another 10 mg of Zyprexa IM and this seemed to calm him down almost completely and he laid down in bed. He has been quiet since that time and sleeping with good respiratory affect and good oxygenation. [facility] psych unit gave us a call and they accepted the patient in transport for further evaluation and treatment. Will attempt to get the [facility] department to transport him down to [place]. 01/05/20 06:26 Please note that the Covid test was negative. All the 24-hour hold documentation and transfer paperwork has been finished and faxed to [facility] psych unit. 01/05/20 07:05 Patient continues to rest peacefully as we await for transport to [facility] in [place] psych unit. Departure - Departure Time of Disposition: 09:25 Disposition: DC/Tfer to Psych Hosp/Unit 65 Condition: Fair Clinical Impression: Paranoid schizophrenia, Auditory hallucinations, Polysubstance abuse, Suicidal ideation, Agitation, Aggression - Discharge Information Referrals: PCP,None [Primary Care Provider] - Sepsis Event Note (ED) - Evaluation Sepsis Screening Result: No Definite Risk ED Communication - ED Communication Date/Time Date: 01/05/20 Time Called: 05:00 - Discussed Case With (1) Discussed Case With (1): Admitting Provider Person/s Notified (1): Dr. Stuart (He agrees to accept the patient in transport for further evaluation and treatment.)
[2020-01-05] MEDS ORDERED: OLANZapine 10 MG Vial IM ONE ×2 (03:01→05:10)
[2020-01-05] MEDS ORDERED: Lisinopril 10 MG Tab PO ONE (03:03)
[2020-01-05 03:19] VITALS: BP 000/0
[2020-01-05 04:01] LABS: ACETAMINOPHEN 0 ug/mL (10-30)
== END 2020-01-05 09:25 ==
LOC: JD.ED 02:10
DX: F20.0 Paranoid schizophrenia (principal); F19.10 Other psychoactive substance abuse, uncomplicated; R45.1 Restlessness and agitation; F91.1 Conduct disorder, childhood-onset type; E66.9 Obesity, unspecified; F17.210 Nicotine dependence, cigarettes, uncomplicated; F32.9 Major depressive disorder, single episode, unspecified; I10 Essential (primary) hypertension; F41.9 Anxiety disorder, unspecified; Z79.899 Other long term (current) drug therapy; Z68.43 Body mass index [BMI] 50.0-59.9, adult; Z88.2 Allergy status to sulfonamides; Z20.828 Contact with and (suspected) exposure to other viral communicable diseases
CPT/HCPCS: 36415; 80053; 80306; 80307; 85025; 96372; 99285; A9270; J3490; U0002

== ENCOUNTER 2020-06-04 16:22 | Emergency (ER) | payer MEDICARE, MEDICAID ==
[2020-06-04 16:34] VITALS: BP 133/80; PULSE 96
--- NOTE | 2020-06-04 17:36 | EDM.PDOC ---
ED HPI GENERAL MEDICAL PROBLEM - General Chief Complaint: Lower Extremity Injury/Pain Stated Complaint: LT LEG PAIN Time Seen by Provider: 06/04/20 16:37 Source of Information: Reports: Patient History Limitations: Reports: No Limitations - History of Present Illness INITIAL COMMENTS - FREE TEXT/NARRATIVE: The patient presents with left leg pain. He says this has been going on for about a month. He is not sure if he hurt it. He says he was at a [facility] in [place] a month ago and he fell. He does not really remember the incident. He says the pain comes and goes. He has no numbness or weakness. He has no bowel or bladder problems. He has no swelling in his leg. He denies back pain. Onset: Gradual Duration: Week(s): (4) Location: Reports: Lower Extremity, Left (hip and thigh) Quality: Reports: Sharp Severity: Moderate Improves with: Reports: Immobilization Worsens with: Reports: Movement Context: Reports: Trauma (he may have fallen) Associated Symptoms: Reports: No Other Symptoms Left Upper Leg Pain Score (Numeric/FACES): 9 - Related Data Allergies Allergy/AdvReac Type Severity Reaction Status Date / Time Sulfa (Sulfonamide Allergy Severe Respiratory Verified 06/04/20 16:34 Antibiotics) Distress Home Meds: Home Meds Divalproex Sodium [Depakote ER] 500 mg PO BEDTIME 08/17/18 [History] lisinopriL [Prinivil] 10 mg PO DAILY 08/17/18 [History] traZODone HCl [Trazodone HCl] 50 mg PO BEDTIME 08/17/18 [History] Naproxen [Naprosyn] 500 mg PO BID PRN #30 tablet 06/04/20 [Rx] Past Medical History HEENT History: Reports: Impaired Vision, Other (See Below) Other HEENT History: wears glasses Cardiovascular History: Reports: Hypertension Psychiatric History: Reports: ADHD, Anxiety, Bipolar, Depression, OCD, Panic Attack, Schizophrenia Other Psychiatric History: paranoia Endocrine/Metabolic History: Reports: Obesity/BMI 30+ - Infectious Disease History Infectious Disease History: Reports: None Social & Family History - Family History Family Medical History: No Pertinent Family History - Tobacco Use Tobacco Use Status *Q: Current Every Day Tobacco User Years of Tobacco use: 4 Packs/Tins Daily: 1 - Caffeine Use Caffeine Use: Reports: Soda, Tea - Recreational Drug Use Recreational Drug Use: No - Living Situation & Occupation Living situation: Reports: Single, Other (with a friend) Occupation: Disabled Review of Systems - Review of Systems Review Of Systems: See Below Constitutional: Reports: No Symptoms Eyes: Reports: No Symptoms Ears: Reports: No Symptoms Nose: Reports: No Symptoms Mouth/Throat: Reports: No Symptoms Respiratory: Reports: No Symptoms Cardiovascular: Reports: No Symptoms GI/Abdominal: Reports: No Symptoms Genitourinary: Reports: No Symptoms Musculoskeletal: Reports: Other (Left hip and left thigh pain) ED EXAM, GENERAL - Physical Exam Exam: See Below Exam Limited By: No Limitations General Appearance: Alert, No Apparent Distress Ears: Normal External Exam Nose: Normal Inspection Head: Atraumatic, Normocephalic Neck: Normal Inspection Respiratory/Chest: No Respiratory Distress Extremities: Other (Mild pain upon palpation to the left hip and anterior lateral left thigh. Good sensation and pulses distally.) Course - Vital Signs Last Recorded V/S: Last Vital Signs Temp 97.2 F 06/04/20 16:30 Pulse 96 06/04/20 16:30 Resp 20 06/04/20 16:30 BP 133/80 06/04/20 16:30 Pulse Ox 97 06/04/20 16:30 - Orders/Labs/Meds Orders: Active Orders 24 hr Category Date Time Status Hip Min 2V or 3V w Pelvis Lt [CR] Stat Exams 06/04/20 16:44 Taken - Re-Assessments/Exams Free Text/Narrative Re-Assessment/Exam: 06/04/20 17:36 I ordered an x-ray of his left hip and pelvis. 06/04/20 17:59 His x-ray looks good. I will get him some naprosyn for pain. Departure - Departure Time of Disposition: 18:00 Disposition: Home, Self-Care 01 Condition: Good Clinical Impression: Left hip pain, Left thigh pain - Discharge Information *PRESCRIPTION DRUG MONITORING PROGRAM REVIEWED*: Not Applicable *COPY OF PRESCRIPTION DRUG MONITORING REPORT IN PATIENT AYAH: Not Applicable Prescriptions: Naproxen [Naprosyn] 500 mg PO BID PRN #30 tablet PRN Reason: Pain Referrals: Pooja Joseph PA-C [Primary Care Provider] - 2 Weeks Forms: ED Department Discharge Additional Instructions: Take the naprosyn 2 times per day as needed for pain. Ice your leg as needed for 15 minutes. Follow up with Pooja Joseph if you are not better in 2 weeks. Sepsis Event Note (ED) - Evaluation Sepsis Screening Result: No Definite Risk - Focused Exam Vital Signs: Vital Signs Temp Pulse Resp BP Pulse Ox 06/04/20 16:30 97.2 F 96 20 133/80 97 - My Orders Last 24 Hours: My Active Orders 06/04/20 16:44 Hip Min 2V or 3V w Pelvis Lt [CR] Stat - Assessment/Plan Last 24 Hours: My Active Orders 06/04/20 16:44 Hip Min 2V or 3V w Pelvis Lt [CR] Stat
--- NOTE | 2020-06-05 08:26 | CR ---
Pelvis and left hip: AP view of the pelvis was obtained as well as AP and frog leg lateral views of the left hip. Comparison: No prior pelvis or hip exam is available. Joint spaces within both hips are maintained. Sacroiliac joints appear within normal limits. Slight sclerotic area is noted within the right iliac wing most likely representing a bone island. No acute fracture, dislocation or other bony abnormality is appreciated. . Impression: 1. Nothing acute is seen on AP pelvis or on 2 view left hip exam. Diagnostic code #2
== END 2020-06-04 18:26 | disposition home or self-care (01) ==
LOC: JD.ED 16:22
DX: M79.652 Pain in left thigh (principal); M25.552 Pain in left hip; I10 Essential (primary) hypertension; E66.9 Obesity, unspecified; Z68.43 Body mass index [BMI] 50.0-59.9, adult; Z88.2 Allergy status to sulfonamides; Z72.0 Tobacco use
CPT/HCPCS: 73502-26-LT; 73502-LT; 99283

== ENCOUNTER 2020-08-26 22:09 | Emergency (ER) | payer MEDICARE, MEDICAID ==
[2020-08-26 22:25] VITALS: BP 128/92; PULSE 100
[2020-08-26] MEDS ORDERED: Cyclobenzaprine 10 MG Tab PO ONE (22:36)
[2020-08-26] MEDS ORDERED: Naproxen 500 MG Tab PO ONE (22:36)
--- NOTE | 2020-08-26 22:45 | EDM.PDOC ---
ED HPI GENERAL MEDICAL PROBLEM - General Chief Complaint: Lower Extremity Injury/Pain Stated Complaint: LT LEG PAIN Time Seen by Provider: 08/26/20 22:24 Source of Information: Reports: Patient History Limitations: Reports: No Limitations - History of Present Illness INITIAL COMMENTS - FREE TEXT/NARRATIVE: The patient presents with left low back pain and down his left leg. This started back in February. He saw his primary care doctor and he has been in physical therapy. He was doing good and was discharged. A few days ago it started hurting again and it is worse now then ever. He was not sure what the diagnoses was. He has no numbness or weakness. He has no bowel or bladder problems. Onset: Gradual Duration: Day(s): Location: Reports: Back, Lower Extremity, Left Quality: Reports: Sharp Severity: Severe Improves with: Reports: None Worsens with: Reports: None Associated Symptoms: Reports: No Other Symptoms Left Leg Pain Score (Numeric/FACES): 10 - Related Data Allergies Allergy/AdvReac Type Severity Reaction Status Date / Time Sulfa (Sulfonamide Allergy Severe Respiratory Verified 06/04/20 16:34 Antibiotics) Distress Home Meds: Home Meds Divalproex Sodium [Depakote ER] 500 mg PO BEDTIME 08/17/18 [History] lisinopriL [Prinivil] 10 mg PO DAILY 08/17/18 [History] traZODone HCl [Trazodone HCl] 50 mg PO BEDTIME 08/17/18 [History] Naproxen [Naprosyn] 500 mg PO BID PRN #30 tablet 06/04/20 [Rx] Cyclobenzaprine [Flexeril] 10 mg PO TID PRN #20 tab 08/26/20 [Rx] Naproxen [Naprosyn] 500 mg PO BID PRN #30 tablet 08/26/20 [Rx] Past Medical History HEENT History: Reports: Impaired Vision, Other (See Below) Other HEENT History: wears glasses Cardiovascular History: Reports: Hypertension Psychiatric History: Reports: ADHD, Anxiety, Bipolar, Depression, OCD, Panic Attack, Schizophrenia Other Psychiatric History: paranoia Endocrine/Metabolic History: Reports: Obesity/BMI 30+ - Infectious Disease History Infectious Disease History: Reports: None Social & Family History - Family History Family Medical History: No Pertinent Family History - Tobacco Use Tobacco Use Status *Q: Current Every Day Tobacco User Years of Tobacco use: 5 Packs/Tins Daily: 1 - Caffeine Use Caffeine Use: Reports: Soda, Tea - Recreational Drug Use Recreational Drug Use: No - Living Situation & Occupation Living situation: Reports: Single, Other (with a friend) Occupation: Disabled Review of Systems - Review of Systems Review Of Systems: See Below Constitutional: Reports: No Symptoms Eyes: Reports: No Symptoms Ears: Reports: No Symptoms Nose: Reports: No Symptoms Mouth/Throat: Reports: No Symptoms Respiratory: Reports: No Symptoms Cardiovascular: Reports: No Symptoms GI/Abdominal: Reports: No Symptoms Musculoskeletal: Reports: Back Pain, Other (Left leg pain) ED EXAM, GENERAL - Physical Exam Exam: See Below Exam Limited By: No Limitations General Appearance: Alert, No Apparent Distress Ears: Normal External Exam Nose: Normal Inspection Head: Atraumatic, Normocephalic Neck: Normal Inspection Respiratory/Chest: No Respiratory Distress, Lungs Clear, Normal Breath Sounds Cardiovascular: Regular Rate, Rhythm, No Edema, No Murmur GI/Abdominal: Soft, Non-Tender, No Organomegaly, No Mass Back Exam: Other (Mild pain upon palpation to the left lower back that radiates down his leg.) Extremities: Other (Pain to the left leg. Good sensation and pulses.) Neurological: Alert, Oriented, No Motor/Sensory Deficits Course - Vital Signs Last Recorded V/S: Last Vital Signs Temp 97 F 08/26/20 22:20 Pulse 100 08/26/20 22:20 Resp 16 08/26/20 22:20 BP 128/92 H 08/26/20 22:20 Pulse Ox 97 08/26/20 22:20 - Orders/Labs/Meds Meds: Medications Discontinued Medications Generic Name Dose Route Start Last Admin Trade Name Lucille PRN Reason Stop Dose Admin Cyclobenzaprine HCl 10 mg 08/26/20 22:36 Cyclobenzaprine 10 Mg Tab PO 08/26/20 22:37 ONETIME ONE Naproxen 500 mg 08/26/20 22:36 Naproxen 500 Mg Tab PO 08/26/20 22:37 ONETIME ONE - Re-Assessments/Exams Free Text/Narrative Re-Assessment/Exam: 08/26/20 22:44 I ordered naprosyn and flexeril 10mg by mouth. Departure - Departure Time of Disposition: 22:45 Disposition: Home, Self-Care 01 Condition: Good Clinical Impression: Left low back pain Qualifiers: Chronicity: chronic Sciatica presence: with sciatica Sciatica laterality: sciatica of left side Qualified Code(s): M54.42 - Lumbago with sciatica, left side; G89.29 - Other chronic pain - Discharge Information *PRESCRIPTION DRUG MONITORING PROGRAM REVIEWED*: Not Applicable *COPY OF PRESCRIPTION DRUG MONITORING REPORT IN PATIENT AYAH: Not Applicable Prescriptions: Cyclobenzaprine [Flexeril] 10 mg PO TID PRN #20 tab PRN Reason: Pain Naproxen [Naprosyn] 500 mg PO BID PRN #30 tablet PRN Reason: Pain Referrals: Pooja Joseph PA-C [Primary Care Provider] - 1 Week Additional Instructions: Take the naprosyn and flexeril as needed for pain. Follow up with your doctor. Please return if you are worse. Sepsis Event Note (ED) - Evaluation Sepsis Screening Result: No Definite Risk - Focused Exam Vital Signs: Vital Signs Temp Pulse Resp BP Pulse Ox 08/26/20 22:20 97 F 100 16 128/92 H 97
== END 2020-08-26 23:02 | disposition home or self-care (01) ==
LOC: JD.ED 22:09
DX: M54.42 Lumbago with sciatica, left side (principal); I10 Essential (primary) hypertension; E66.9 Obesity, unspecified; Z68.43 Body mass index [BMI] 50.0-59.9, adult; Z72.0 Tobacco use; Z88.2 Allergy status to sulfonamides; Z79.899 Other long term (current) drug therapy
CPT/HCPCS: 99283; A9270

== ENCOUNTER 2020-08-31 16:09 | Emergency (ER) | payer MEDICARE, MEDICAID ==
[2020-08-31 16:45] VITALS: BP 135/79; PULSE 97
[2020-08-31] MEDS ORDERED: HYDROmorphone 1 MG/ML Syringe IM ONE (17:01)
[2020-08-31] MEDS ORDERED: predniSONE 20 MG Tab PO ONE (17:03)
--- NOTE | 2020-08-31 17:14 | EDM.PDOC ---
ED HPI GENERAL MEDICAL PROBLEM - General Chief Complaint: Lower Extremity Injury/Pain Stated Complaint: leg pain Time Seen by Provider: 08/31/20 16:19 - History of Present Illness INITIAL COMMENTS - FREE TEXT/NARRATIVE: Patient is a 25-year-old male presenting to the emergency department with complaints of left leg pain. He has been having problems with this off and on since February of this year. In January, he did a stay in a psychiatric hospital. While there, he fell and he thinks this is likely the cause of his issues. He has been seen in this ER a number of occasions. He has gone to physical therapy which she states did help the pain. He was "graduated "and has not seen them since June. He reports gradually worsening pain. Has had no recent injuries. He does have low back pain as well as pain near his left buttocks. Denies any bowel or bladder dysfunction. Denies any numbness or tingling. He has been taking naproxen and Flexeril for pain with little relief. He has an MRI scheduled the being of September which she thinks is of his leg, however he is unsure. This is scheduled through [facility]. His primary care provider is Pooja Joseph. Left Lower Leg Pain Score (Numeric/FACES): 10 - Related Data Allergies Allergy/AdvReac Type Severity Reaction Status Date / Time Sulfa (Sulfonamide Allergy Severe Respiratory Verified 08/26/20 23:21 Antibiotics) Distress Home Meds: Home Meds Divalproex Sodium [Depakote ER] 500 mg PO BEDTIME 08/17/18 [History] lisinopriL [Prinivil] 10 mg PO DAILY 08/17/18 [History] Cyclobenzaprine [Flexeril] 10 mg PO TID PRN #20 tab 08/26/20 [Rx] Naproxen [Naprosyn] 500 mg PO BID PRN #30 tablet 08/26/20 [Rx] ARIPiprazole [Abilify] 5 mg PO DAILY 08/31/20 [History] Divalproex Sodium [Depakote] 2,000 mg PO BEDTIME 08/31/20 [History] Hydrocodone/Acetaminophen [Hydrocodone-Acetamin 5-325 mg] 1 each PO Q6H PRN #6 tablet 08/31/20 [Rx] OLANZapine [ZyPREXA] 15 mg PO DAILY 08/31/20 [History] QUEtiapine [SEROquel] 100 mg PO BEDTIME 08/31/20 [History] predniSONE [Prednisone] 20 mg PO ASDIRECTED #13 tablet 08/31/20 [Rx] Past Medical History HEENT History: Reports: Impaired Vision, Other (See Below) Other HEENT History: wears glasses Cardiovascular History: Reports: Hypertension Psychiatric History: Reports: ADHD, Anxiety, Bipolar, Depression, OCD, Panic Attack, Schizophrenia Other Psychiatric History: paranoia Endocrine/Metabolic History: Reports: Obesity/BMI 30+ - Infectious Disease History Infectious Disease History: Reports: C-Difficile Other Infectious Disease History: RSV Social & Family History - Family History Family Medical History: No Pertinent Family History - Tobacco Use Tobacco Use Status *Q: Current Every Day Tobacco User Years of Tobacco use: 7 Packs/Tins Daily: 1 - Caffeine Use Caffeine Use: Reports: Soda - Recreational Drug Use Recreational Drug Type: Reports: Marijuana/Hashish Recreational Drug Use Frequency: Daily - Living Situation & Occupation Living situation: Reports: Single, Other (with a friend) Occupation: Disabled Review of Systems - Review of Systems Review Of Systems: Comprehensive ROS is negative, except as noted in HPI. ED EXAM, GENERAL - Physical Exam Exam: See Below Exam Limited By: No Limitations General Appearance: Alert, WD/WN, No Apparent Distress Respiratory/Chest: No Respiratory Distress, Lungs Clear, Normal Breath Sounds, No Accessory Muscle Use, Chest Non-Tender Cardiovascular: Normal Peripheral Pulses, Regular Rate, Rhythm, No Edema, No Gallop, No JVD, No Murmur, No Rub Back Exam: Normal Inspection, Paraspinal Tenderness (left paraspinal and SI joint), Vertebral Tenderness (L4-S2) Extremities: Normal Inspection, Normal Range of Motion Neurological: Alert, Oriented, CN II-XII Intact, Normal Cognition, Normal Gait, Normal Reflexes, No Motor/Sensory Deficits Psychiatric: Normal Affect, Normal Mood Skin Exam: Warm, Dry, Intact, Normal Color, No Rash Course - Vital Signs Last Recorded V/S: Last Vital Signs Temp 97.6 F 08/31/20 16:42 Pulse 97 08/31/20 16:42 Resp 20 08/31/20 16:42 BP 135/79 08/31/20 16:42 Pulse Ox 96 08/31/20 16:42 - Orders/Labs/Meds Meds: Medications Discontinued Medications Generic Name Dose Route Start Last Admin Trade Name Kelbyq PRN Reason Stop Dose Admin Hydromorphone HCl 1 mg 08/31/20 17:01 08/31/20 17:23 Hydromorphone 1 Mg/Ml Syringe IM 08/31/20 17:02 1 mg ONETIME ONE Administration Prednisone 40 mg 08/31/20 17:03 08/31/20 17:24 Prednisone 20 Mg Tab PO 08/31/20 17:04 40 mg ONETIME ONE Administration Departure - Departure Time of Disposition: 17:10 Disposition: Home, Self-Care 01 Condition: Good Clinical Impression: Lumbago with sciatica, left side Qualifiers: Chronicity: acute Back pain laterality: left Qualified Code(s): M54.42 - Lumbago with sciatica, left side - Discharge Information *PRESCRIPTION DRUG MONITORING PROGRAM REVIEWED*: Yes *COPY OF PRESCRIPTION DRUG MONITORING REPORT IN PATIENT AYAH: No Prescriptions: Hydrocodone/Acetaminophen [Hydrocodone-Acetamin 5-325 mg] 1 each PO Q6H PRN #6 tablet PRN Reason: Pain predniSONE [Prednisone] 20 mg PO ASDIRECTED #13 tablet Instructions: Sciatica, [id number] Referrals: Pooja Joseph PA-C [Primary Care Provider] - Forms: ED Department Discharge Additional Instructions: You were seen in the emergency department today for ongoing left leg pain. After examination, the cause of your leg pain is likely due to sciatica related to inflammation in your left lower back. While in the ER, you received an injection of Dilaudid for pain. You also receive your first dose of prednisone. Recommend that you take Tylenol routinely for pain. For pain not relieved by this, you may take 1 hydrocodone every 6 hours. Take this only as prescribed. Do not drive or work for 12 hours after taking it as it can be sedating. Ensure that you are not taking more than 4000 mg of Tylenol from all sources within a 24-hour period. You have also been started on prednisone which is an anti- inflammatory. Take this as prescribed. Contact your primary care provider tomorrow to follow-up and ensure that the MRI you have scheduled includes your low back. Return to ER for any new or worsening symptoms. Sepsis Event Note (ED) - Evaluation Sepsis Screening Result: No Definite Risk
== END 2020-08-31 18:12 | disposition home or self-care (01) ==
LOC: JD.ED 16:09
DX: M54.42 Lumbago with sciatica, left side (principal); I10 Essential (primary) hypertension; E66.9 Obesity, unspecified; Z68.44 Body mass index [BMI] 60.0-69.9, adult; Z72.0 Tobacco use; Z88.2 Allergy status to sulfonamides; Z79.899 Other long term (current) drug therapy
CPT/HCPCS: 96372; 99283; J1170; J7512

== ENCOUNTER 2020-09-05 06:15 | Emergency (ER) | payer MEDICARE, MEDICAID ==
[2020-09-05 06:21] VITALS: BP 155/98; PULSE 109
[2020-09-05] MEDS ORDERED: Ondansetron 4 MG/2 ML SDV IVPUSH ONE (06:27)
[2020-09-05] MEDS ORDERED: HYDROmorphone 1 MG/ML Syringe IVPUSH ONE (06:27)
[2020-09-05] MEDS ORDERED: Sodium Chloride 0.9% 1,000 ML IV SCH (06:30)
--- NOTE | 2020-09-05 06:32 | EDM.PDOC ---
<PalChai alexander Cheryl - Last Filed: 09/05/20 09:33> ED HPI GENERAL MEDICAL PROBLEM - General Chief Complaint: Lower Extremity Injury/Pain Stated Complaint: [facility] Time Seen by Provider: 09/05/20 06:26 - Related Data Allergies Allergy/AdvReac Type Severity Reaction Status Date / Time Sulfa (Sulfonamide Allergy Severe Respiratory Verified 09/05/20 06:20 Antibiotics) Distress Home Meds: Home Meds Divalproex Sodium [Depakote ER] 500 mg PO BEDTIME 08/17/18 [History] lisinopriL [Prinivil] 10 mg PO DAILY 08/17/18 [History] Cyclobenzaprine [Flexeril] 10 mg PO TID PRN #20 tab 08/26/20 [Rx] Naproxen [Naprosyn] 500 mg PO BID PRN #30 tablet 08/26/20 [Rx] ARIPiprazole [Abilify] 5 mg PO DAILY 08/31/20 [History] Divalproex Sodium [Depakote] 2,000 mg PO BEDTIME 08/31/20 [History] Hydrocodone/Acetaminophen [Hydrocodone-Acetamin 5-325 mg] 1 each PO Q6H PRN #6 tablet 08/31/20 [Rx] OLANZapine [ZyPREXA] 15 mg PO DAILY 08/31/20 [History] QUEtiapine [SEROquel] 100 mg PO BEDTIME 08/31/20 [History] predniSONE [Prednisone] 20 mg PO ASDIRECTED #13 tablet 08/31/20 [Rx] Hydrocodone/Acetaminophen [HYDROcodone-Acetaminophen 5-325 MG] 1 each PO Q6HR PRN #14 tab 09/05/20 [Rx] predniSONE [Prednisone] 20 mg PO DAILY #5 tablet 09/05/20 [Rx] Course - Re-Assessments/Exams Free Text/Narrative Re-Assessment/Exam: 09/05/20 09:31 Avoid heavy lifting. Continue prednisone previously prescribed. Prednisone 20 mg in addition for the next 5 days. Tylenol for mild to moderate discomfort or hydrocodone if needed for severe pain. Prescriptions have been sent to [facility] located at the [facility] [place] [facility]. Physical therapy if not better over the next 3 to 4 days. Follow up clinic next week if not better as expected. 09/05/20 09:34. Have assumed care from Dr Cotto. I agree with his hx and exam as documented. CT of L spine does not show any acute findings. Pt resting comfortably at this time. Discharge instr. as documented. Departure - Departure Time of Disposition: 09:35 Disposition: Home, Self-Care 01 Condition: Fair Clinical Impression: Back pain Qualifiers: Back pain location: low back pain Chronicity: acute Back pain laterality: left Sciatica presence: with sciatica Sciatica laterality: sciatica of left side Qualified Code(s): M54.42 - Lumbago with sciatica, left side - Discharge Information Prescriptions: Hydrocodone/Acetaminophen [HYDROcodone-Acetaminophen 5-325 MG] 1 each PO Q6HR PRN #14 tab PRN Reason: Pain predniSONE [Prednisone] 20 mg PO DAILY #5 tablet Instructions: Chronic Back Pain, [id number] Referrals: Pooja Joseph PA-C [Primary Care Provider] - Forms: ED Department Discharge <Jose Cotto - Last Filed: 09/05/20 19:20> ED HPI GENERAL MEDICAL PROBLEM - General Source of Information: Reports: Patient, EMS History Limitations: Reports: No Limitations - History of Present Illness INITIAL COMMENTS - FREE TEXT/NARRATIVE: 25-year-old male presents to the ED per [facility] whom he summoned. Chief complaint is severe left low back pain rating down the posterior lateral aspect of his left thigh down to his ankle. This pain has been present for the most part since February of this year. Patient has an underlying psychiatric illness which has prevented him from seeking or getting adequate diagnosis and treatment plan for his obvious sciatica left lower extremity. He has never had any imaging of his lower back patient currently weighs 425 pounds. He walks with a definitive limp and every step increase the pain in his left lower back. He states problem started after a fall while in one of the psychiatric wards of hospital in [place]. States the pain is so bad that he cannot sleep at night. The history suggest that he has a bipolar affective disorder with psychotic tendencies. Onset: Unknown/Unsure (She believes his left low back pain started sometime in February of this year) Duration: Chronic, Getting Worse Location: Reports: Back (Left low back pain with radiculopathy down the posterior lateral aspect of his left leg to his ankle.), Lower Extremity, Left Quality: Reports: Ache, Burning, Throbbing, Other Severity: Severe (Pain is constant and worsens with standing 10 out of 10) Improves with: Reports: None Worsens with: Reports: Movement Context: Denies: Activity, Exercise (Symptoms with certain movements and standing or trying to walk.), Lifting, Sick Contact, Trauma, Other Associated Symptoms: Denies: No Other Symptoms, Confusion, Chest Pain, Cough, cough w sputum, Diaphoresis, Fever/Chills, Headaches, Loss of Appetite, Malaise, Nausea/Vomiting, Rash, Seizure, Shortness of Breath, Syncope, Weakness Treatments [employer]: Reports: Acetaminophen Left Leg Pain Score (Numeric/FACES): 10 Past Medical History HEENT History: Reports: Impaired Vision, Other (See Below) Other HEENT History: wears glasses Cardiovascular History: Reports: Hypertension Musculoskeletal History: Reports: Back Pain, Chronic (Left side since February of this year) Psychiatric History: Reports: ADHD, Anxiety, Bipolar, Depression, OCD, Panic Attack, Schizophrenia Other Psychiatric History: paranoia Endocrine/Metabolic History: Reports: Obesity/BMI 30+ - Infectious Disease History Infectious Disease History: Reports: C-Difficile Other Infectious Disease History: RSV Social & Family History - Family History Family Medical History: No Pertinent Family History - Tobacco Use Tobacco Use Status *Q: Current Every Day Tobacco User Years of Tobacco use: 10 Packs/Tins Daily: 1 - Caffeine Use Caffeine Use: Reports: Soda - Living Situation & Occupation Living situation: Reports: Single, Other (with a friend) Occupation: Disabled Review of Systems - Review of Systems Review Of Systems: See Below Constitutional: Reports: Weakness (Left lower extremity). Denies: Chills, Diaphoresis, Fever Eyes: Reports: Glasses Ears: Reports: No Symptoms Nose: Reports: No Symptoms Mouth/Throat: Reports: No Symptoms Respiratory: Reports: No Symptoms Cardiovascular: Reports: No Symptoms GI/Abdominal: Reports: No Symptoms Genitourinary: Reports: No Symptoms Musculoskeletal: Reports: Back Pain (With her ductal apathy down the left lower) Skin: Reports: No Symptoms Neurological: Reports: Difficulty Walking, Other (Radiculopathy left lower extremity) Psychiatric: Reports: Depression, Mood Lability, Anxiety, Other (Bipolar affective disorder with psychotic breaks.) ED EXAM, GENERAL - Physical Exam Exam: See Below Exam Limited By: No Limitations General Appearance: Alert, WD/WN, Moderate Distress (Peers to be in genuine discomfort.), Other (Temperature is 36.1 degrees. Heart rate 110 is sinus at the bedside. Respiratory is 18 with BP 155/98 pulse ox is 99% room air.) Eye Exam: Bilateral Eye: Normal Inspection (No scleral icterus or blepharal pallor.), PERRL Throat/Mouth: Normal Inspection, Normal Lips, Normal Oropharynx, Other Neck: Normal Inspection, Supple, Non-Tender, Full Range of Motion. No: Lymphadenopathy (L), Lymphadenopathy (R) Respiratory/Chest: No Respiratory Distress, Lungs Clear, No Accessory Muscle Use, Decreased Breath Sounds (Wheeze breath sounds posteriorly to the lower 20% lung leger due to his size.) Cardiovascular: Normal Peripheral Pulses, Regular Rate, Rhythm, No Edema, No Gallop, No Murmur, No Rub Peripheral Pulses: 2+: Posterior Tibial (L), Posterior Tibial (R), Dorsalis Pedis (L), Dorsalis Pedis (R) GI/Abdominal: Normal Bowel Sounds, Soft, Non-Tender, No Organomegaly, No Mass, Pelvis Stable, Other (Orbitally obese. Abdominal girth limits ability to palpate solid organs) Back Exam: Other (No significant paraspinal muscle spasm on examination point tenderness on very deep palpation over the L4-L5 and L5-S1 facet joints on the left side as compared to the right.) Extremities: Normal Inspection, Pedal Edema (Said both ankles), Other (Patient has pain with internal and external rotation of his right hip on the left side. He also has a positive bowstring sign) Neurological: Alert, Oriented, CN II-XII Intact, Normal Cognition, Other (Straight leg raising is positive at 30 degrees on the left. Positive at 45 degrees on the right with a positive bowstring sign on the left side. Clinically he has evidence of L5 nerve root irritation left side) Psychiatric: Anxious Skin Exam: Warm, Dry, Intact, Normal Color, No Rash #1 Interpretation EKG Date: 09/05/20 Time: 06:46 Rhythm: Other Rate (Beats/Min): 101 [place]: LAD-Left [place] Deviation (-37 degrees) P-Wave: Present QRS: Other (RSR prime wave in V1 consider normal variant. Early R wave transition consider right ventricular hypertrophy pattern tall R wave in lead I is suggestive of a left ventricular hypertrophy pattern.) ST-T: Other (Diffuse early repolarization pattern) QT: Normal EKG Interpretation Comments: Abnormal ECG Course - Vital Signs Last Recorded V/S: Last Vital Signs Temp 36.1 C 09/05/20 06:17 Pulse 109 H 09/05/20 06:17 Resp 18 09/05/20 06:17 BP 155/98 H 09/05/20 06:17 Pulse Ox 99 09/05/20 06:17 - Orders/Labs/Meds Labs: Laboratory Tests 09/05/20 09/05/20 09/05/20 Range/Units 07:01 07:01 07:01 WBC 16.99 H (4.23-9.07) K/mm3 RBC 5.16 (4.63-6.08) M/mm3 Hgb 15.8 (13.7-17.5) gm/dl Hct 47.0 (40.1-51.0) % MCV 91.1 (79.0-92.2) fl MCH 30.6 (25.7-32.2) pg MCHC 33.6 (32.2-35.5) g/dl RDW Std Deviation 45.3 H (35.1-43.9) fL Plt Count 223 (163-337) K/mm3 MPV 10.1 (9.4-12.3) fl Neut % (Auto) 65.5 (34.0-67.9) % Lymph % (Auto) 23.3 (21.8-53.1) % [place] % (Auto) 9.5 (5.3-12.2) % Eos % (Auto) 0.6 L (0.8-7.0) Baso % (Auto) 0.2 (0.1-1.2) % Neut # (Auto) 11.13 H (1.78-5.38) K/mm3 Lymph # (Auto) 3.96 H (1.32-3.57) K/mm3 [place] # (Auto) 1.62 H (0.30-0.82) K/mm3 Eos # (Auto) 0.10 (0.04-0.54) K/mm3 Baso # (Auto) 0.03 (0.01-0.08) K/mm3 Manual Slide Review Abnormal smear Sodium 142 (136-145) mEq/L Potassium 3.7 (3.5-5.1) mEq/L Chloride 106 (98-107) mEq/L Carbon Dioxide 27 (21-32) mEq/L Anion Gap 12.7 (5-15) BUN 13 (7-18) mg/dL Creatinine 0.9 (0.7-1.3) mg/dL Est Cr Clr Drug Dosing TNP Estimated GFR (MDRD) > 60 (>60) mL/min BUN/Creatinine Ratio 14.4 (14-18) Glucose 110 H (70-99) mg/dL Hemoglobin A1c 5.4 ( - 5.6) % Calcium 8.4 L (8.5-10.1) mg/dL Total Bilirubin 0.2 (0.2-1.0) mg/dL AST 15 (15-37) U/L ALT 54 (16-63) U/L Alkaline Phosphatase 64 (46-116) U/L C-Reactive Protein <0.2 (<1.0) mg/dL Total Protein 6.6 (6.4-8.2) g/dl Albumin 3.2 L (3.4-5.0) g/dl Globulin 3.4 gm/dL Albumin/Globulin Ratio 0.9 L (1-2) Meds: Medications Discontinued Medications Generic Name Dose Route Start Last Admin Trade Name Freq PRN Reason Stop Dose Admin Hydromorphone HCl 1 mg 09/05/20 06:27 09/05/20 06:42 Hydromorphone 1 Mg/Ml Syringe IVPUSH 09/05/20 06:28 1 mg ONETIME ONE Administration Sodium Chloride 1,000 mls @ 150 mls/hr 09/05/20 06:30 09/05/20 06:41 Normal Saline IV 150 mls/hr ASDIRECTED CHAGO Administration Ondansetron HCl 4 mg 09/05/20 06:27 09/05/20 06:41 Ondansetron 4 Mg/2 Ml Sdv IVPUSH 09/05/20 06:28 4 mg ONETIME ONE Administration - Radiology Interpretation Free Text/Narrative:: 25-year-old male presents to the ED per [facility] from home presumably. He reports he was recently discharged from a psychiatric facility but he does not declare where from. He states that he has been having chronic left low back pain rating down the posterior lateral aspect of his left thigh to his ankle since February of this year. Is become much worse the last 2 days. Unable to sleep at all last night due to pain. Clinically he has an L5 nerve root irritation on the left side with straight leg raising of only 30 degrees on the left side. He has very mild weakness of the dorsiflexion of his left great toe. Absence of both ankle reflexes and best I can get is 1+ and symmetrical in the patella reflexes bilaterally due to his size. He also has a positive bowstring sign and I could only get his right leg to around 40 to 45 degrees before pain was made much worse on the left side of his back. Patient's major problem is morbid obesity with a weight currently of 425 pounds. I am going to see if there is an opening an MRI this morning which would identify his problem versus doing CT and MRI IV will be started and he will be given Dilaudid 1 mg IV and Zofran 4 mg IV. Metoclopramide is relatively contraindicated as he is already on 2 other antipsychotics. He may well have a very prolonged interval from being on serum Seroquel. ECG is ordered primarily to check on the QT interval which will be prolonged by Zofran. - Re-Assessments/Exams Free Text/Narrative Re-Assessment/Exam: 09/05/20 19:[address] I have read the [address] report done after I left the emergency room this morning. Ankylosing spondylitis should be felt to be part of his differential diagnosis since he has closure of his SI joints. Sepsis Event Note (ED) - Evaluation Sepsis Screening Result: No Definite Risk
[2020-09-05 07:40] LABS: HEMOGLOBIN A1C 5.4 %
--- NOTE | 2020-09-05 08:35 | CT ---
CT lumbar spine Technique: Multiple axial sections were obtained from the top of T11 inferiorly through the L5-S1 disc. Reconstructed coronal and sagittal images were obtained. Comparison: No prior lumbar spine imaging is available. Diffuse artifact noted from the patient's body habitus. Findings: Vertebral body heights are maintained. Mild disc space narrowing is noted at T11-12 and T12-L1 as well as posteriorly at L1-2. Vacuum disc phenomena is seen within the L5-S1 discs. Other disc spaces are fairly well preserved. No fracture is appreciated. No abnormal subluxation is seen. Vacuum phenomena is seen within the sacroiliac joints. No central canal stenosis or discrete neural foraminal stenosis is seen. Impression: 1. Degenerative change as noted above. 2. Mild artifact secondary to the patient's body habitus. 3. No definite acute abnormality is appreciated. Diagnostic code #2
== END 2020-09-05 09:44 | disposition home or self-care (01) ==
LOC: JD.ED 06:15
DX: M54.42 Lumbago with sciatica, left side (principal); I10 Essential (primary) hypertension; Z88.2 Allergy status to sulfonamides; Z79.899 Other long term (current) drug therapy; Z72.0 Tobacco use
CPT/HCPCS: 36415; 72131; 80053; 83036; 85025; 86140; 93005; 96374; 96375; 99284; J1170; J2405; J7030; 93010

== ENCOUNTER 2021-01-29 13:28 | Emergency (ER) | payer MEDICARE, MEDICAID ==
[2021-01-29] MEDS ORDERED: Sodium Chloride 0.9% 10 ML Syringe FLUSH PRN (14:37)
[2021-01-29] MEDS ORDERED: Sodium Chloride 0.9% 1,000 ML IV ONE ×2 (14:43→15:41)
--- NOTE | 2021-01-29 15:16 | EDM.PDOC ---
<Angelia Pepper V - Last Filed: 01/29/21 18:42> ED HPI GENERAL MEDICAL PROBLEM - General Chief Complaint: Gastrointestinal Problem Stated Complaint: LOOSE STOOLS, CHILLS, FEVER Time Seen by Provider: 01/29/21 14:20 - Related Data Allergies Allergy/AdvReac Type Severity Reaction Status Date / Time Sulfa (Sulfonamide Allergy Severe Respiratory Verified 01/29/21 14:30 Antibiotics) Distress Home Meds: Home Meds lisinopriL [Prinivil] 10 mg PO DAILY 08/17/18 [History] ARIPiprazole [Abilify] 5 mg PO DAILY 08/31/20 [History] Divalproex Sodium [Depakote] 2,000 mg PO BEDTIME 08/31/20 [History] OLANZapine [ZyPREXA] 20 mg PO DAILY 08/31/20 [History] QUEtiapine [SEROquel] 150 mg PO BEDTIME 08/31/20 [History] Amoxicillin/Clavulanate K [Augmentin 875-125 MG] 1 tab PO BID 3 Days #6 tablet 01/29/21 [Rx] Aripiprazole Lauroxil [Aristada] 1 injection IM ASDIRECTED 01/29/21 [History] Course - Re-Assessments/Exams Free Text/Narrative Re-Assessment/Exam: 01/29/21 16:35 Case taken over from SAMPSON Menchaca. Lactic acid was elevated at 2.7 however patient has been ordered 2 L of normal saline, we will go ahead and get a repeat lactic acid and reassess after the liters of saline have been given time to infuse. 01/29/21 18:43 Patient's repeat lactic acid is 1.9, patient states he is feeling much better. His heart rate is still tachycardic at 122 bpm but he states again that he is feeling much better, he has no palpitations or any sort of chest pain, and would like to go home. States that he had some pizza from [employer] at around 6 PM last night, and then he became ill with the diarrhea at around 1 AM. We will treat him with some oral antibiotics at this time. Patient states he has plenty of fluids at home for ongoing management. Departure - Departure Time of Disposition: 18:43 Disposition: Home, Self-Care 01 Condition: Good Clinical Impression: Food poisoning - Discharge Information *PRESCRIPTION DRUG MONITORING PROGRAM REVIEWED*: No *COPY OF PRESCRIPTION DRUG MONITORING REPORT IN PATIENT AYAH: No Prescriptions: Amoxicillin/Clavulanate K [Augmentin 875-125 MG] 1 tab PO BID 3 Days #6 tablet Instructions: Dehydration, Adult, [id number], Food Poisoning, [id number] Referrals: Pooja Joseph PA-C [Primary Care Provider] - Forms: ED Department Discharge Additional Instructions: You were evaluated in the ER today for your diarrhea and other symptoms. It is thought likely that you may have had some food poisoning, you were given 2 L of IV fluids, for management of this. Laboratory evaluation did demonstrate an elevated white count, and elevated inflammatory markers, and you will get started on oral antibiotics for this this will be Augmentin 1 tablet two times a day for the next 3 days. This medication was electronically sent to the [place] [facility] located in the [employer] [facility]. You may take a medication called loperamide (Imodium) for ongoing diarrhea. You can get this at any pharmacy or other retail space as it is an [id number] medication. Please take per manufacture instructions on the back of the box. Recommend over the next few days, you stick to a clear liquid diet and advance to bland as tolerated. You may eat foods such as chicken noodle soups, crackers and otherwise until your appetite returns. Your thyroid level was elevated, suggesting issues with your thyroid, please follow-up with Pooja Joseph, sometime next week to have your thyroid level redrawn and for possible further management as you might need medication. Do not hesitate to return to the ER at any time if your symptoms should change or worsen. <Cheyanne Murillo - Last Filed: 02/02/21 20:09> ED HPI GENERAL MEDICAL PROBLEM - General Source of Information: Reports: Patient History Limitations: Reports: No Limitations - History of Present Illness INITIAL COMMENTS - FREE TEXT/NARRATIVE: 25-year-old male presents the emergency department today with complaints of diarrhea, chills and hot flashes. Patient states this started around 1 AM this morning. He states he feels like he has had diarrhea stools hourly since that time. He also reports chills and hot flashes as well as nausea without vomiting. States he does have a slight sore throat and some shortness of breath. Patient states he does smoke marijuana almost daily however has been about 2 days since he last smoked marijuana. He also does admit to smoking cigarettes. He denies any other street drug use. Dates he has only been able to drink a couple of glasses of water today. States he has not eaten at all today. Past Medical History HEENT History: Reports: Impaired Vision, Other (See Below) Other HEENT History: wears glasses Cardiovascular History: Reports: Hypertension Musculoskeletal History: Reports: Back Pain, Chronic Psychiatric History: Reports: ADHD, Anxiety, Bipolar, Depression, OCD, Panic Attack, Schizophrenia Other Psychiatric History: paranoia Endocrine/Metabolic History: Reports: Obesity/BMI 30+ - Infectious Disease History Infectious Disease History: Reports: C-Difficile Other Infectious Disease History: RSV - Past Surgical History Cardiovascular Surgical History: Reports: None Social & Family History - Family History Family Medical History: No Pertinent Family History - Tobacco Use Tobacco Use Status *Q: Current Every Day Tobacco User Years of Tobacco use: 5 Packs/Tins Daily: 0.5 Used Tobacco, but Quit: No - Caffeine Use Caffeine Use: Reports: Coffee, Soda - Recreational Drug Use Recreational Drug Use: Yes Recreational Drug Type: Reports: Marijuana/Hashish Recreational Drug Use Frequency: Daily - Living Situation & Occupation Living situation: Reports: Single, Other (with a friend) Occupation: Disabled ED ROS GENERAL - Review of Systems Review Of Systems: Comprehensive ROS is negative, except as noted in HPI. ED EXAM, GI/ABD - Physical Exam Exam: See Below Exam Limited By: No Limitations General Appearance: Alert, WD/WN, No Apparent Distress Ears: Normal External Exam, Hearing Grossly Normal Nose: Normal Inspection Throat/Mouth: Normal Inspection, Normal Lips, Normal Voice, No Airway Compromise Head: Atraumatic, Normocephalic Neck: Normal Inspection, Supple Respiratory/Chest: No Respiratory Distress, Lungs Clear, Normal Breath Sounds, No Accessory Muscle Use, Chest Non-Tender Cardiovascular: Normal Peripheral Pulses, No Edema, No Murmur, Tachycardia GI/Abdominal Exam: Normal Bowel Sounds, Soft, Non-Tender, No Distention (Male) Exam: Deferred Rectal (Males) Exam: Deferred Back Exam: Normal Inspection Extremities: Normal Inspection Neurological: Alert, Oriented, Normal Cognition Psychiatric: Normal Affect, Normal Mood Skin Exam: Warm, Dry, Intact, Normal Color, No Rash Lymphatic: No Adenopathy #1 Interpretation EKG Date: 01/29/21 Time: 14:47 Rhythm: NSR Rate (Beats/Min): 120 [place]: Normal P-Wave: Present QRS: Normal ST-T: Normal QT: Normal Comparison: NA - No Prior EKG EKG Interpretation Comments: Per Dr. Aguillon interpretation: Sinus tachycardia at 120 bpm; left anterior fascicular block; abnormal EKG Course - Vital Signs Text/Narrative:: As stated above, patient presents with diarrhea, chills and hot flashes that started around 1 AM this morning. Physical exam is essentially unremarkable. Patient however is tachycardic and tachypneic. Temperature is not noted on triage vital signs. We will do a septic work-up on this patient. We will also start liter of normal saline at wide open due to his tachycardia, suspect dehydration. Last Recorded V/S: Last Vital Signs Temp 99.9 F 01/29/21 19:03 Pulse 125 H 01/29/21 19:03 Resp 22 H 01/29/21 19:03 BP 153/87 H 01/29/21 19:03 Pulse Ox 95 01/29/21 19:03 - Orders/Labs/Meds Labs: Laboratory Tests 01/29/21 01/29/21 01/29/21 Range/Units 14:20 14:45 14:45 WBC 19.33 H (4.23-9.07) K/mm3 RBC 5.98 (4.63-6.08) M/mm3 Hgb 18.1 H D (13.7-17.5) gm/dl Hct 54.2 H (40.1-51.0) % MCV 90.6 (79.0-92.2) fl MCH 30.3 (25.7-32.2) pg MCHC 33.4 (32.2-35.5) g/dl RDW Std Deviation 44.7 H (35.1-43.9) fL Plt Count 240 (163-337) K/mm3 MPV 9.9 (9.4-12.3) fl Neut % (Auto) 87.6 H (34.0-67.9) % Lymph % (Auto) 5.1 L (21.8-53.1) % [place] % (Auto) 6.6 (5.3-12.2) % Eos % (Auto) 0.2 L (0.8-7.0) Baso % (Auto) 0.1 (0.1-1.2) % Neut # (Auto) 16.93 H (1.78-5.38) K/mm3 Lymph # (Auto) 0.98 L (1.32-3.57) K/mm3 [place] # (Auto) 1.28 H (0.30-0.82) K/mm3 Eos # (Auto) 0.04 (0.04-0.54) K/mm3 Baso # (Auto) 0.02 (0.01-0.08) K/mm3 Sodium 138 (136-145) mEq/L Potassium 4.6 (3.5-5.1) mEq/L Chloride 103 (98-107) mEq/L Carbon Dioxide 20 L (21-32) mEq/L Anion Gap 19.6 H (5-15) BUN 14 (7-18) mg/dL Creatinine 1.1 (0.7-1.3) mg/dL Est Cr Clr Drug Dosing 109.34 mL/min Estimated GFR (MDRD) > 60 (>60) mL/min BUN/Creatinine Ratio 12.7 L (14-18) Glucose 119 H (70-99) mg/dL Lactic Acid (0.4-2.0) mmol/L Calcium 8.9 (8.5-10.1) mg/dL Magnesium 1.8 (1.8-2.4) mg/dL Total Bilirubin 0.8 (0.2-1.0) mg/dL AST 25 (15-37) U/L ALT 51 (16-63) U/L Alkaline Phosphatase 75 (46-116) U/L C-Reactive Protein 2.0 H* (<1.0) mg/dL Total Protein 8.3 H (6.4-8.2) g/dl Albumin 3.6 (3.4-5.0) g/dl Globulin 4.7 gm/dL Albumin/Globulin Ratio 0.8 L (1-2) TSH 3rd Generation 4.230 H (0.358-3.74) uIU/mL Urine Color (Yellow) Urine Appearance (Clear) Urine pH (5.0-8.0) Ur Specific [place] (1.005-1.030) Urine Protein (Negative) Urine Glucose (UA) (Negative) Urine Ketones (Negative) Urine Occult Blood (Negative) Urine Nitrite (Negative) Urine Bilirubin (Negative) Urine Urobilinogen (0.2-1.0) Ur Leukocyte Esterase (Negative) Urine RBC (0-5) /hpf Urine WBC (0-5) /hpf Ur Squamous Epith Cells (0-5) /hpf Urine Bacteria (FEW) /hpf Urine Mucus (FEW) /hpf SARS-CoV-2 RNA (GAURAV) Negative (NEGATIVE) 01/29/21 01/29/21 01/29/21 Range/Units 14:45 16:52 17:46 WBC (4.23-9.07) K/mm3 RBC (4.63-6.08) M/mm3 Hgb (13.7-17.5) gm/dl Hct (40.1-51.0) % MCV (79.0-92.2) fl MCH (25.7-32.2) pg MCHC (32.2-35.5) g/dl RDW Std Deviation (35.1-43.9) fL Plt Count (163-337) K/mm3 MPV (9.4-12.3) fl Neut % (Auto) (34.0-67.9) % Lymph % (Auto) (21.8-53.1) % [place] % (Auto) (5.3-12.2) % Eos % (Auto) (0.8-7.0) Baso % (Auto) (0.1-1.2) % Neut # (Auto) (1.78-5.38) K/mm3 Lymph # (Auto) (1.32-3.57) K/mm3 [place] # (Auto) (0.30-0.82) K/mm3 Eos # (Auto) (0.04-0.54) K/mm3 Baso # (Auto) (0.01-0.08) K/mm3 Sodium (136-145) mEq/L Potassium (3.5-5.1) mEq/L Chloride (98-107) mEq/L Carbon Dioxide (21-32) mEq/L Anion Gap (5-15) BUN (7-18) mg/dL Creatinine (0.7-1.3) mg/dL Est Cr Clr Drug Dosing mL/min Estimated GFR (MDRD) (>60) mL/min BUN/Creatinine Ratio (14-18) Glucose (70-99) mg/dL Lactic Acid 2.7 H* 1.9 (0.4-2.0) mmol/L Calcium (8.5-10.1) mg/dL Magnesium (1.8-2.4) mg/dL Total Bilirubin (0.2-1.0) mg/dL AST (15-37) U/L ALT (16-63) U/L Alkaline Phosphatase (46-116) U/L C-Reactive Protein (<1.0) mg/dL Total Protein (6.4-8.2) g/dl Albumin (3.4-5.0) g/dl Globulin gm/dL Albumin/Globulin Ratio (1-2) TSH 3rd Generation (0.358-3.74) uIU/mL Urine Color Yellow (Yellow) Urine Appearance Clear (Clear) Urine pH 6.0 (5.0-8.0) Ur Specific [place] 1.020 (1.005-1.030) Urine Protein 1+ H (Negative) Urine Glucose (UA) Negative (Negative) Urine Ketones 2+ H (Negative) Urine Occult Blood Negative (Negative) Urine Nitrite Negative (Negative) Urine Bilirubin 1+ H (Negative) Urine Urobilinogen 0.2 (0.2-1.0) Ur Leukocyte Esterase Negative (Negative) Urine RBC 0-5 (0-5) /hpf Urine WBC 0-5 (0-5) /hpf Ur Squamous Epith Cells 0-5 (0-5) /hpf Urine Bacteria Moderate H (FEW) /hpf Urine Mucus Many H (FEW) /hpf SARS-CoV-2 RNA (GAURAV) (NEGATIVE) Meds: Medications Discontinued Medications Generic Name Dose Route Start Last Admin Trade Name Freq PRN Reason Stop Dose Admin Sodium Chloride 1,000 mls @ 999 mls/hr 01/29/21 14:43 01/29/21 15:05 Normal Saline IV 01/29/21 15:43 999 mls/hr ONETIME ONE Administration Sodium Chloride 1,000 mls @ 999 mls/hr 01/29/21 15:41 01/29/21 16:20 Normal Saline IV 01/29/21 16:41 999 mls/hr ONETIME ONE Administration Sodium Chloride 10 ml 01/29/21 14:37 01/29/21 15:05 Sodium Chloride 0.9% 10 Ml Syringe FLUSH 10 ml ASDIRECTED PRN Administration Keep Vein Open - Re-Assessments/Exams Free Text/Narrative Re-Assessment/Exam: 01/29/21 15:44 Hemotology reveals a WBC of 19.33, hemoglobin 18.1, hematocrit 54.2, platelet count 240 Chemistry reveals a sodium of 138, potassium 4.6, carbon dioxide 20, anion gap 19.6, BUN 14, creatinine 1.1, glucose 119, magnesium 1.8, C-reactive protein 2.0, TSH 4.230 Patient is Covid negative Lactic acid is pending Patient remains tachycardic in the 120s after receiving 1 L of IV fluids. Suspect elevation in white count is due to dehydration as the patient also has an anion gap of 19.6. Will order another liter of normal saline wide open. 01/29/21 15:57 Radiologist impression portable view of the chest: Heart size and mediastinum are normal. Lungs are clear with no acute parenchymal change. Stable degenerative changes seen within the spine. Impression: 1. Nothing acute is seen on portable chest x-ray. Sepsis Event Note (ED) - Evaluation Sepsis Screening Result: Possible Sepsis Risk
--- NOTE | 2021-01-29 15:53 | CR ---
Chest: Portable view of the chest was obtained. Comparison: Prior chest x-ray of 02/10/15. Heart size and mediastinum are normal. Lungs are clear with no acute parenchymal change. Stable degenerative change is seen within the spine. Impression: 1. Nothing acute is seen on portable chest x-ray. Diagnostic code #2
[2021-01-29 19:06] VITALS: BP 153/87; PULSE 125
== END 2021-01-29 19:07 | disposition home or self-care (01) ==
LOC: JD.ED 13:28
DX: T78.1XXA Other adverse food reactions, not elsewhere classified, initial encounter (principal); I10 Essential (primary) hypertension; E66.9 Obesity, unspecified; Z68.43 Body mass index [BMI] 50.0-59.9, adult; Z88.2 Allergy status to sulfonamides; Z79.899 Other long term (current) drug therapy; Z72.0 Tobacco use
CPT/HCPCS: 36415; 71045; 80053; 81001; 83605; 83735; 84443; 85025; 86140; 87040; 93005; 99285; J7030; U0002

== ENCOUNTER 2021-11-30 10:49 | Emergency (ER) | payer MEDICARE, MEDICAID ==
[2021-11-30 11:21] VITALS: BP 147/104; PULSE 89
[2021-11-30] MEDS ORDERED: Lidocaine 1% with EPINEPHrine 1:100,000 10 ML MDV INJECT ONE (11:30)
[2021-11-30] MEDS ORDERED: Lidocaine/EPINEPHrine/Tetracaine Soln 1 ML TOP ONE (11:30)
== END 2021-11-30 13:15 | disposition home or self-care (01) ==
LOC: JD.ED 10:49
DX: S01.111A Laceration without foreign body of right eyelid and periocular area, initial encounter (principal); I10 Essential (primary) hypertension; E66.9 Obesity, unspecified; Z68.44 Body mass index [BMI] 60.0-69.9, adult; Z88.2 Allergy status to sulfonamides; Z79.899 Other long term (current) drug therapy; W22.8XXA Striking against or struck by other objects, initial encounter
CPT/HCPCS: 12013; 99282

== ENCOUNTER 2024-07-15 23:38 | Emergency (ER) | payer MEDICARE, MEDICAID ==
[2024-07-16] MEDS: Ketorolac 30 MG/ML SDV IM ONE (00:03)
[2024-07-16] MEDS ORDERED: Naproxen 500 MG Tab PO ONE (02:31)
[2024-07-16 02:49] VITALS: BP 146/100; PULSE 80
== END 2024-07-16 02:49 | disposition home or self-care (01) ==
LOC: JD.ED 23:38
DX: M51.26 Other intervertebral disc displacement, lumbar region (principal); M25.552 Pain in left hip; M79.662 Pain in left lower leg; I10 Essential (primary) hypertension; Z88.2 Allergy status to sulfonamides; Z79.899 Other long term (current) drug therapy
CPT/HCPCS: 72131; 72192; 73552; 73590; 96372; 99284; J1885